=== PATIENT | male | born 1950 | race Caucasian/White ===

== ENCOUNTER → 2016-11-26 | Outpatient (CLI) | payer BC, MEDICARE ==
[~2016-11-26] MED LIST: ATIVAN0.5 MG; CARDIZEM CD240 MG PO; CIALIS PO; DAYPRO600 M1 PO; HYDR12.5C PO; JALYN; PROSCAR5 M1 PO; TRICOR145 MG; UROXATRAL10 MG PO; VIT D2; VITAMIN D2
--- NOTE | ~2016-11-26 | ST ---
[place], [place] EXERCISE STRESS TEST REPORT NAME: HORACE QUINTERO [facility] #: [id number] UNIT #: [id number] ROOM: DOCTOR: REY SOUSA MD BIRTHDATE: [birth year] DOS: 11/26/2016 STRESS TEST REASON FOR TESTING: Evaluation of chest pain. After explaining the procedure and obtaining consent, the patient was subjected to Magdiel protocol. Resting heart rate 64 with a blood pressure of 118/82. EKG showed sinus, normal axis, nonspecific ST. He exercised for a period of 10 minutes and 15 seconds, completed 1 minute and 15 seconds at stage 3. Peak heart rate was 135 with a blood pressure of 164/72. No ST-T wave changes or arrhythmias were seen during the stress test. Within a minute of test termination, he was injected with Cardiolite and stress images will be taken. ASSESSMENT AND PLAN: Exercise stress test without any ST-T wave changes or arrhythmias. Cardiolite images are pending. REY SOUSA MD CM:STRESS:EXERCISE STRESS TEST REPORT [id number] REY SOUSA MD
[2016-11-26 07:24] LABS: BASO % 0.8 % (0.0-1.0); EOS # 0.5 10*3/uL (0.0-0.4); EOS % 9.4 % (1.0-4.0); HEMATOCRIT 45.4 % (42.0-52.0); HEMOGLOBIN 15.9 g/dl (14.0-18.0); LYMPH # 1.5 10*3/uL (1.3-4.4); LYMPH % 28.9 % (27.0-41.0); MEAN CELL VOLUME 94.6 fl (80.0-94.0); MEAN CORPUSCULAR HGB 33.1 pg (27.0-31.0); MEAN PLATELET VOLUME 8.9 fl (9.6-12.3); MONO # 0.6 10*3/uL (0.1-1.0); MONO % 11.3 % (3.0-9.0); NEUT # 2.6 10*3/uL (2.3-7.9); NEUT % 49.4 % (47.0-73.0); PLATELET COUNT AUTOMATED 271 10*3/uL (130-400); WHITE BLOOD COUNT 5.2 10*3/uL (4.8-10.8)
[2016-11-26 08:08] LABS: ALKALINE PHOSPHATASE 44 U/L (45-117); BILIRUBIN, TOTAL 0.6 mg/dl (0.2-1.0); BUN 18 mg/dl (7-24); CARBON DIOXIDE 25 mmol/L (21-32); CHLORIDE 108 mmol/L (98-107); CHOLESTEROL 188 mg/dL (<200); EST GLOM FILT AFRICAN AMERICAN > 60 ml/min; FREE T4 0.87 ng/dl (0.76-1.46); GLUCOSE 99 mg/dL (65-99); HDL CHOLESTEROL 75 mg/dl (40-60); LDL CHOLESTEROL 94 mg/dL (9-159); POTASSIUM 3.7 mmol/L (3.5-5.1); SGOT/AST 26 IU/L (3-35); SGPT/ALT 31 U/L (12-78); SODIUM 143 mmol/L (136-145); TOTAL PROTEIN 6.7 gm/dL (6.4-8.2); TRIGLYCERIDES 97 mg/dl (<150); VLDL CHOLESTEROL 19 mg/dL (6-40)
[2016-11-26 08:39] LABS: FOLIC ACID 16.54 ng/mL (>5.38); VITAMIN D, 25-HYDROXY 31.7 ng/mL (30-100)
== END | disposition home or self-care (01) ==
LOC: CARD 00:55 → LAB 00:55 → CARD 07:30
PROVIDERS: Internal Medicine
DX: Z13.1 Encounter for screening for diabetes mellitus (principal); Z13.21 Encounter for screening for nutritional disorder; Z13.220 Encounter for screening for lipoid disorders; Z00.00 Encounter for general adult medical examination without abnormal findings; R07.2 Precordial pain; F41.1 Generalized anxiety disorder; E72.00 Disorders of amino-acid transport, unspecified; M19.91 Primary osteoarthritis, unspecified site; E78.2 Mixed hyperlipidemia; M17.0 Bilateral primary osteoarthritis of knee; I10 Essential (primary) hypertension; E55.9 Vitamin D deficiency, unspecified; R53.81 Other malaise; R07.9 Chest pain, unspecified

== ENCOUNTER → 2017-01-17 | Outpatient (CLI) | payer BC | END | disposition home or self-care (01) | LOC: CARD 12-25 13:00 | DX: R07.2 Precordial pain (principal) ==

== ENCOUNTER → 2017-07-23 | Outpatient (CLI) | payer MEDICARE | END | disposition home or self-care (01) | LOC: CT 07-22 10:00 | DX: Z01.818 Encounter for other preprocedural examination (principal); M17.12 Unilateral primary osteoarthritis, left knee; N32.9 Bladder disorder, unspecified; Z96.652 Presence of left artificial knee joint ==

== ENCOUNTER → 2017-08-22 | Outpatient (CLI) | payer MEDICARE ==
[~2017-08-22] MED LIST changes: +FISH PO; +LATANOPROST 2.2.5 ML OP; +MULTIPLE VITAM1 EAC1 PO; +VITAMIN C500 M4 PO; +[UNRECOGNIZED DRUG - OTHER] PO
[2017-08-22 09:29] LABS: BASO % 0.8 % (0.0-1.0); EOS # 0.4 10*3/uL (0.0-0.4); EOS % 7.3 % (1.0-4.0); HEMATOCRIT 44.2 % (42.0-52.0); HEMOGLOBIN 15.4 g/dl (14.0-18.0); LYMPH # 1.5 10*3/uL (1.3-4.4); LYMPH % 28.5 % (27.0-41.0); MEAN CELL VOLUME 94.2 fl (80.0-94.0); MEAN CORPUSCULAR HGB 32.8 pg (27.0-31.0); MEAN CORPUSCULAR HGB CONC 34.8 g/dl (33.0-37.0); MONO # 0.6 10*3/uL (0.1-1.0); MONO % 11.6 % (3.0-9.0); NEUT # 2.7 10*3/uL (2.3-7.9); NEUT % 51.4 % (47.0-73.0); PLATELET COUNT AUTOMATED 281 10*3/uL (130-400); RED BLOOD COUNT 4.69 10*6/uL (4.50-5.90); WHITE BLOOD COUNT 5.2 10*3/uL (4.8-10.8)
[2017-08-22 10:12] LABS: ALBUMIN 3.7 gm/dl (3.1-4.5); ALKALINE PHOSPHATASE 43 U/L (45-117); BUN 24 mg/dl (7-24); CHLORIDE 105 mmol/L (98-107); CREATININE 1.32 mg/dL (0.70-1.30); POTASSIUM 3.8 mmol/L (3.5-5.1); SGOT/AST 27 IU/L (3-35); SGPT/ALT 36 U/L (12-78); SODIUM 140 mmol/L (136-145); TOTAL PROTEIN 6.9 gm/dL (6.4-8.2)
== END | disposition home or self-care (01) ==
LOC: LAB 08:39 → CT 09:00
PROVIDERS: Nurse Practitioner Family
DX: Z12.5 Encounter for screening for malignant neoplasm of prostate (principal); D40.0 Neoplasm of uncertain behavior of prostate; I10 Essential (primary) hypertension; N32.89 Other specified disorders of bladder; Z90.49 Acquired absence of other specified parts of digestive tract

== ENCOUNTER → 2017-08-27 | Outpatient (CLI) | payer MEDICARE ==
[2017-08-27 09:33] LABS: BASO % 0.6 % (0.0-1.0); EOS # 0.4 10*3/uL (0.0-0.4); EOS % 7.9 % (1.0-4.0); HEMATOCRIT 46.7 % (42.0-52.0); HEMOGLOBIN 16.4 g/dl (14.0-18.0); LYMPH # 1.6 10*3/uL (1.3-4.4); LYMPH % 30.3 % (27.0-41.0); MEAN CELL VOLUME 95.1 fl (80.0-94.0); MEAN CORPUSCULAR HGB 33.4 pg (27.0-31.0); MEAN CORPUSCULAR HGB CONC 35.1 g/dl (33.0-37.0); MEAN PLATELET VOLUME 8.7 fl (9.6-12.3); MONO # 0.6 10*3/uL (0.1-1.0); MONO % 11.3 % (3.0-9.0); NEUT # 2.7 10*3/uL (2.3-7.9); NEUT % 49.7 % (47.0-73.0); PLATELET COUNT AUTOMATED 294 10*3/uL (130-400); RED BLOOD COUNT 4.91 10*6/uL (4.50-5.90); RED CELL DISTRI WIDTH 12.8 % (0-14.5); WHITE BLOOD COUNT 5.3 10*3/uL (4.8-10.8)
[2017-08-27 09:35] LABS: BILIRUBIN NEGATIVE (NEGATIVE); BLOOD NEGATIVE (NEGATIVE); CLARITY CLOUDY (CLEAR); COLOR YELLOW (YELLOW); GLUCOSE NEGATIVE (NEGATIVE); KETONE NEGATIVE (NEGATIVE); LEUKO ESTERASE NEGATIVE (NEGATIVE); NITRITE NEGATIVE (NEGATIVE); UROBILINOGEN 0.2 E.U./dl (0.2-1.0)
[2017-08-27 10:14] LABS: ALBUMIN 4.2 gm/dl (3.1-4.5); ALKALINE PHOSPHATASE 49 U/L (45-117); BUN 18 mg/dl (7-24); CHLORIDE 105 mmol/L (98-107); CREATININE 1.24 mg/dL (0.70-1.30); POTASSIUM 3.8 mmol/L (3.5-5.1); SGOT/AST 38 IU/L (3-35); SGPT/ALT 36 U/L (12-78); SODIUM 138 mmol/L (136-145); TOTAL PROTEIN 7.3 gm/dL (6.4-8.2)
[2017-08-27 11:08] LABS: BACTERIA 2+
== END | disposition home or self-care (01) ==
LOC: LAB 08:06
PROVIDERS: Orthopaedic Surgery
DX: Z01.818 Encounter for other preprocedural examination (principal); M19.90 Unspecified osteoarthritis, unspecified site

== ENCOUNTER 2017-09-03 01:47 | Inpatient (IN) | payer MEDICARE ==
[~2017-09-03] VITALS: Ht 172.7 cm; Wt 77.1 kg
[2017-09-03] VITALS (9 sets, daily range): BP systolic 103–141; BP diastolic 56–83
--- NOTE | ~2017-09-03 | PR ---
[place], [place] PROGRESS NOTE NAME: HORACE QUINTERO [facility] #: [id number] UNIT #: [id number] ROOM: 510 DOCTOR: REY SOUSA MD BIRTHDATE: [birth year] DOS: SUBJECTIVE: The patient feels fairly good, but during yesterday evening, he developed a low-grade fever. OBJECTIVE: VITAL SIGNS: Graphic trend shows blood pressure 145/87, pulse of 102, respirations 18, temperature 98.9, T-max of 99.1 around 8:00 in the evening. LUNGS: Diminished breath sounds, clear. HEART: Regular. ABDOMEN: Obese, soft, nontender. EXTREMITIES: Trace edema in the left leg. The knee looks fine without any redness or swelling. ASSESSMENT AND PLAN: 1. Primary osteoarthritis, status post left knee replacement. 2. Benign hypertension, controlled. 3. Mild anxiety, already on medications. I reassured the patient about the low-grade fever. We will continue following that. If he spikes a fever again this morning, then we will do blood cultures. Otherwise, when Dr. Bryan clears the patient, can be discharged. REY SOUSA MD CM:PNTRANS [id number] REY SOUSA MD 09/06/17 0233 interface
--- NOTE | ~2017-09-03 | WRIGHTHP ---
[place], [place] PATIENT HISTORY AND PHYSICAL EXAM NAME: [facility]INTERO [id number] UNIT #: [id number] ROOM: 510 DOCTOR: REY SOUSA MD BIRTHDATE: [birth year] DOS: 09/03/2017 HISTORY OF PRESENT ILLNESS: The patient is 66 years old, very well known to us, underwent a left knee replacement yesterday. The patient feels good. Other than pain, he is not having any complaints. Denies any chest pains, palpitations or shortness of breath. PAST MEDICAL HISTORY: Significant for: 1. primary osteoarthritis of left knee, status post replacement. 2. Benign hypertension. 3. Generalized anxiety disorder. 4. Mixed hyperlipidemia. MEDICATIONS: He is on fenofibrate, lorazepam, diltiazem, hydrochlorothiazide, Uroxatral and Proscar 5 mg. SOCIAL HISTORY: Nonsmoker. PHYSICAL EXAMINATION: GENERAL: He is awake and alert and oriented. VITAL SIGNS: Blood pressure is 120/64, pulse of 70, respirations 18. NECK: Supple. No lymph nodes. LUNGS: Clear. HEART: Regular. ABDOMEN: Obese, soft, nontender. EXTREMITIES: Without any edema on the right. Left knee is heavily bandaged. ASSESSMENT AND PLAN: 1. Status post knee replacement for primary osteoarthritis of left knee, postoperative day 1, stable. 2. Benign hypertension. Restart home medications. He did receive slow IV hydration during the night. His pressures are stable. 3. Anticoagulation for deep venous thrombosis prophylaxis ordered. PT, OT have been consulted. [place], [place] PATIENT HISTORY AND PHYSICAL EXAM NAME: INGRIDHORACE Pagan UNIT #: [id number] ROOM: 510 DOCTOR: REY SOUSA MD BIRTHDATE: [birth year] REY SOUSA MD CM:HISPHYS:PATIENT HISTORY AND PHYSICAL EXAMINATION [phone] REY SOUSA MD 09/05/17 0751 interface
--- NOTE | 2017-09-03 12:00 | NUR ---
Time: 1200 A 68 year old MALE admitted to under services of REY BROWN MD. Pt. arrived via bed from OP/ADMIT. Chief complaint: TOTAL KNEE ARTHROPLASTY. LYDIA SIN
--- NOTE | 2017-09-03 13:06 | NUR ---
PHYSICAL THERAPY PAtient evaluated on 5, full evaluation to follow. Continue with PT as per plan of care with fall and acute left TKA precautions. PAtient does not want SNF, wants home. Home with home health RN and PT and family assist. PAtient is moderate complexity via chart review, tests and evaluation: [id number]. Thank you for this referral. Eugenia Bateman,PT
--- NOTE | 2017-09-03 13:15 | NUR ---
THE PATIENT WAS SEEN BY (PT). IN TO SEE PATIENT AFTER (PT) AND PATIENT STATES MINIMAL PAIN, SOB, DIZZINESS, AND N/V. NO OTHER CONCERNS.
--- NOTE | 2017-09-03 13:47 | NUR ---
SPOKE WITH DR. SOUSA ABOUT STARTING PATIENTS HOME MEDS. SEE MED REC TO SEE CONTINUED AND HELD
--- NOTE | 2017-09-03 16:23 | NUR ---
CPM PLACED ON AT 1445. OFF NOW. PER DR. HANNAH PT CAN USE BID TOLERATED. IVF D/C PER ORDER. PT HAS HAD GOOD ORAL INTAKE.
--- NOTE | 2017-09-03 16:29 | NUR ---
ASSESSMENT COMPLETE. PT STATES CPM MACHINE NOT HURTING KNEE BUT BOTHERING HIM AT THE THIGH. DR. HANNAH MADE AWARE. ANGE DRESSING TO LEFT LEG, INCISION NOT VISABLE. PPP BILATERALLY, NO EDEMA NOTED. PT DENY NUMBNESS/TINGLING IN SURGICAL LEG. LESLIE INTACT. PT STATES NO NEEDS AT THIS TIME.
--- NOTE | 2017-09-03 20:11 | NUR ---
PATIENT GIVEN PERCOCET FOR POST OP KNEE PAIN 4/10.
--- NOTE | 2017-09-03 20:59 | NUR ---
PATIENT STATED THAT PAIN WAS WORSE AND THAT PAIN PILL DID NOT HELP HIM. PATIENT STATED AT THIS TIME PAIN WAS 10/10. PATIENT WAS THEN GIVEN DILAUDID 2 MG ORDERED. WILL CONTINUE TO MONITOR.
--- NOTE | 2017-09-03 22:52 | NUR ---
PATIENT HAS SINCE STATED THAT PAIN MEDICATION WAS EFFECTIVE AND HE IS NOT HAVING AT THIS TIME. WILL CONTINUE TO MONITOR.
--- NOTE | 2017-09-03 23:24 | NUR ---
MEDICATED WITH COLACE FOR COMPLAINTS OF CONSTIPATION. WILL MONITOR FOR EFFECTIVENESS. CALL LIGHT IN REACH.
[2017-09-04] VITALS: BP 111/80
--- NOTE | 2017-09-04 00:02 | NUR ---
MEDICATED WITH DILAUDID 2MG FOR COMPLAINTS OF LEFT KNEE PAIN. WILL MONITOR FOR EFFECTIVENESS. CALL LIGHT IN REACH.
--- NOTE | 2017-09-04 00:38 | NUR ---
DILAUDID EFFECTIVE AT THIS TIME. RESTING IN BED WITH EYES CLOSED. NO SIGNS OR SYMPTOMS OF DISTRESS NOTED. CALL LIGHT IN REACH.
--- NOTE | 2017-09-04 06:00 | NUR ---
LESLIE CATH REMOVED. PATIENT TOLERATED PROCEDURE WELL. NO SIGNS OR SYMPTOMS OF DISTRESS NOTED.
--- NOTE | 2017-09-04 06:06 | NUR ---
PATIENT MEDICATED WITH PERCOCET FOR COMPLAINTS OF LEFT KNEE PAIN. WILL MONITOR FOR EFFECTIVENESS.
[2017-09-04 06:58] LABS: HEMATOCRIT 36.2 % (42.0-52.0); HEMOGLOBIN 12.6 g/dl (14.0-18.0); MEAN CELL VOLUME 97.1 fl (80.0-94.0); MEAN CORPUSCULAR HGB 33.8 pg (27.0-31.0); MEAN CORPUSCULAR HGB CONC 34.8 g/dl (33.0-37.0); MEAN PLATELET VOLUME 9.2 fl (9.6-12.3); PLATELET COUNT AUTOMATED 241 10*3/uL (130-400); RED BLOOD COUNT 3.73 10*6/uL (4.50-5.90); WHITE BLOOD COUNT 12.6 10*3/uL (4.8-10.8)
[2017-09-04 07:19] LABS: PLATELET SUFFICIENCY NORMAL (NORMAL); TOTAL CELLS COUNTED 100 #CELLS
--- NOTE | 2017-09-04 07:48 | NUR ---
PT MEDICATED WITH PRN DILAUDID AT THIS TIME FOR C/O LEFT KNEE PAIN. PT RATES PAIN /10. WILL CONTINUE TO MONITOR.
[2017-09-04 08:00] VITALS: BP 120/64
--- NOTE | 2017-09-04 08:00 | NUR ---
Cloth Weigher in to talk to patient. Patient states lives at HOME with HIS . There are 2 steps in the home. Physician: DR SOUSA Pharmacy: [facility] health services: NONE AGREES TO [facility] NURSE AND PT WILL CHECK WITH FOR PREFERENCE OF COMPANY Patient's level of ADLs: MINIMAL ASSIST Patient has working utilities: YES DME: NONE Follow-up physician's appointment after d/c: PREFERS TO MAKE OWN APPT Does patient want to access PORTAL?: Discharge plan HOME. [facility] DOES NOT WANT SNF STAY
--- NOTE | 2017-09-04 09:00 | NUR ---
PRN DILAUDID EFFECTIVE PER PT.
--- NOTE | 2017-09-04 09:44 | NUR ---
PHYSICAL THERAPY Anderson was seen this AM for his physical therapy session, Pt supine in bed and wanting his pain meds and ask if i could come back later and wanting to have his breakfast first. LOREE HALLMAN CORSET MAKER.
--- NOTE | 2017-09-04 11:09 | NUR ---
CHOOSES [facility] NURSE AND P.T. WILL ARRANGE CLOSER TO DC. DOES NOT HAVE PREFERANCE FOR DME COMPANY. WILL ORDER WHEELED WALKER AND CPM WHEN I GET WRITTEN SCRIPTS.
--- NOTE | 2017-09-04 11:31 | NUR ---
PT REQUESTS PRN DILAUDID FOR C/O LEFT KNEE PAIN AFTER HE WAS UP WALKIN WITH THERAPY. PT RATES PAIN 07/07. WILL REACCESS.
--- NOTE | 2017-09-04 11:33 | NUR ---
PHYSICAL THERAPY Back this AM to see Mr Rodas. Pt a left TKA, with acute precautions. Transfer supine/sit, sitting balance independent. Working left knee flexion with sitting on the side of Pt's bed, act LAQ'. Sit stand, standing balance with standard walker CG X 1. Followed by gait total 110' X 1, with teaching proper step through, toe off heel strike, knee extension, stop/start gait, stand balance with CG X 1, no LOB. Will try wheeled walker next gait. Pt up in his bedside chair working left knee flexion/extension to pain tolerance and tolerate well. Pt with call light phone. LOREE HALLMAN MACHINERY CLEANER.
--- NOTE | 2017-09-04 12:15 | NUR ---
PRN DILAUDID EFFECTIVE PER PT.
--- NOTE | 2017-09-04 13:08 | NUR ---
PHYSICAL THERAPY Anderson seen this PM 1:1 for his therapy session and is improving with his therapy gait and Ex. Transfer supine/sit, sitting balance independent. Working left knee flexion in sitting on the side of his bed and extension with improvement in rom and pain. Sit/stand and up on wheeled walker CG X 1. gait with W/W for the first time. Gait total 120' X 1, no standing rest, and improving with toe off heel strike, gait stride. Pt back sitting at bedside left knee flexion/extension act, passive rom. Followed by back supine in bed for his lunch and is pleased with his progress. LOREE HALLMAN ONLINE ADVERTISING MANAGER.
--- NOTE | 2017-09-04 13:20 | NUR ---
Occupational Therapy evaluation completed this date on 5 with full eval to follow. Precautions include fall risk, left total knee precautions, moderate complexity level 95501. Patient educated in left TKA precautions, bed controls to be aware of full left knee extension (as patient's knee was flexed upon arrival),TKA precautions reviewed, walker safety w/ xfers, education in initial intro to sock aide, leg lefter and the need for family education regarding CPM machine prior to d/c. Recommend OT per POC and home health OT,PT,SN upon d/c Thank you for this referral. Adali Ellis OTR/L
--- NOTE | 2017-09-04 13:29 | NUR ---
PT MEDICATED WITH PRN PERCOCET FOR C/O BREAK THROUGH PAIN OF LEFT KNEE. WILL CONTINUE TO MONITOR.
--- NOTE | 2017-09-04 14:37 | NUR ---
PT REQUEST PRN DILAUDID FOR C/O LEFT KNEE PAIN. -PT RATES PAIN /. WILL REACCESS.
--- NOTE | 2017-09-04 15:06 | NUR ---
DR. HANNAH TO THE FLOOR FOR DRESSING CHANGE.
--- NOTE | 2017-09-04 15:52 | NUR ---
PUT PT ON CPM MACHINE AT THIS TIME.
[2017-09-04 16:00] VITALS: BP 140/76
--- NOTE | 2017-09-04 16:01 | NUR ---
PT TOLERATING CPM MACHINE WELL.
--- NOTE | 2017-09-04 18:26 | NUR ---
PT MEDICATED WITH PRN DILAUDID AT THIS TIME FOR C/O LEFT KNEE PAIN. PATIENT RATES PAIN 08/06. WILL REACCESS.
--- NOTE | 2017-09-04 20:04 | NUR ---
PATIENT MEDICATED WITH PERCOCET PER PRN ORDER FOR C/O L. KNEE PAINAND TEMP ELEVATION. RATED PAIN A 3/10 WITH 10 BEING THE WORST. ALSO TEMP ELEVATION OF 99.4. REINFORCED USE OF CALL LIGHT.
--- NOTE | 2017-09-04 21:29 | NUR ---
PATIENT MEDICATED WITH DILAUDID PER PRN ORDER FOR C/O PAIN. RATED PAIN A 5/10 WITH 10 BEING THE WORST. SEE EMAR. REINFORCED USE OF CALL LIGHT.
[2017-09-05] VITALS: BP 145/87
--- NOTE | 2017-09-05 00:45 | NUR ---
PATIENT MEDICATED WITH PERCOCET PER PRN ORDER FOR C/O PAIN. SEE EMAR . REINFORCED USE OF CALL LIGHT.
--- NOTE | 2017-09-05 01:30 | NUR ---
PERCOCET GIVEN EARLIER ONLY SLIGHTLY EFFECTIVE. PATIENT MEDICATED SLOWLY WITH DILAUDID PER PRN ORDER FOR C/O PAIN. RATED PAIN A 6/10 WITH 10 BEING THE WORST. SEE EMAR.
--- NOTE | 2017-09-05 03:00 | NUR ---
PATIETN RESTING QUIETLY. NO FURTHER C/O VOICED.
--- NOTE | 2017-09-05 05:00 | NUR ---
Patient medicated slowly with dilaudid as per prn order for c/o l. leg pain. Rated pain a 6/10 with 10 being the worst. See emar. Reinforced use if call light
--- NOTE | 2017-09-05 06:05 | NUR ---
PATIENT MEDICATED WITH PERCOCET PER PRN ORDER AND PATIENT REQUEST FOR C/O L. LEG PAIN. RATED PAIN 5/10 WITH 10 BEING THE WORST. SEE EMAR. REINFORCED USE OF CALL LIGHT.
[2017-09-05 06:34] LABS: BASO % 0.2 % (0.0-1.0); EOS # 0.1 10*3/uL (0.0-0.4); EOS % 1.3 % (1.0-4.0); HEMATOCRIT 35.1 % (42.0-52.0); HEMOGLOBIN 12.1 g/dl (14.0-18.0); LYMPH # 1.4 10*3/uL (1.3-4.4); MEAN CELL VOLUME 95.9 fl (80.0-94.0); MEAN CORPUSCULAR HGB 33.1 pg (27.0-31.0); MEAN CORPUSCULAR HGB CONC 34.5 g/dl (33.0-37.0); MEAN PLATELET VOLUME 9.2 fl (9.6-12.3); MONO # 1.5 10*3/uL (0.1-1.0); MONO % 17.7 % (3.0-9.0); NEUT # 5.2 10*3/uL (2.3-7.9); NEUT % 63.4 % (47.0-73.0); PLATELET COUNT AUTOMATED 208 10*3/uL (130-400); RED BLOOD COUNT 3.66 10*6/uL (4.50-5.90); RED CELL DISTRI WIDTH 12.9 % (0-14.5); WHITE BLOOD COUNT 8.2 10*3/uL (4.8-10.8)
[2017-09-05 06:40] LABS: BUN 17 mg/dl (7-24); CHLORIDE 101 mmol/L (98-107); CREATININE 1.14 mg/dL (0.70-1.30); POTASSIUM 3.8 mmol/L (3.5-5.1); SODIUM 138 mmol/L (136-145)
[2017-09-05 08:00] VITALS: BP 137/78
--- NOTE | 2017-09-05 08:00 | NUR ---
PT UP TO SHOWER. PT C/O LEFT KNEE PAIN THAT RATES A 4/10 ON PAIN SCALE. PT WANTS TO WAIT UNTIL PERCOCET IS DUE FOR PAIN MED.
--- NOTE | 2017-09-05 09:53 | NUR ---
MEDICATED PT PER PRN ORDER WITH IV DILAUDID FOR PT'S C/O LEFT KNEE PAIN THAT RATES AN 8/10 ON PAIN SCALE. PO DULCOLAX GIVEN TO PT PER PRN ORDER FOR C/O CONSTIPATION AFTER ORDER RECEIVED EARLIER FROM DR SOUSA.
--- NOTE | 2017-09-05 09:54 | NUR ---
PHYSICAL THERAPY Anderson seen this AM 1:1 for his therapy treatment. Start with act quad sets to pain tolerance improving slow with his quad sets. Supine/sit CGA X 1, helping left LE, sitting balance side of bed working act left knee flexion. Then sit/stand up on wheeled walker CG X 1, no LOB. Followed by gait 92' X 2, with W/W and much verbal cueing for heel strike, toe off with step through with improvement, no LOB with his gait. Pt back at bedside for another left knee flexion, then supine quad sets. LOREE HALLMAN SPRAY CREW.
--- NOTE | 2017-09-05 10:53 | NUR ---
PT STATES RELIEF OF PAIN WITH EARLIER DILAUDID. NO RESULTS YET FROM DULCOLAX.
--- NOTE | 2017-09-05 11:47 | NUR ---
MEDICATED PT PER PRN ORDER WITH PERCOCET FOR C/O LEFT KNEE PAIN THAT RATES A 4 ON 1-10 PAIN SCALE. CPM APPLIED PER ORDER.
[2017-09-05 12:00] VITALS: BP 144/76
--- NOTE | 2017-09-05 12:50 | NUR ---
PT STATES RELIEF OF PAIN WITH EARLIER PERCOCET.
--- NOTE | 2017-09-05 12:57 | NUR ---
PHYSICAL THERAPY Mr Rodas seen this PM 1:1 for his physical therapy session, present to catina Barron, Pt going home with D/C from the hospital. Transfer supine/sit, sitting balance supervision X 1. At bedside working left knee flexion to Pt's pain tolerance. Then sit/stand and up on wheeled walker independent. Gait total 225' X 1, W/W and supervision X 1, no LOB. Verbal cueing for heel strike and toe off, stop/start gait. Pt back at bedside for left knee flexion and supine knee extension. Pt is improveing with his rom and pain, and was just taken off the CPM before his PM treatment. LOREE HALLMAN QUALITY MANAGEMENT NURSE.
[2017-09-05] MEDS ORDERED: ENOXAPARIN30 MG/0.2 SC (13:45)
[2017-09-05] MEDS ORDERED: Percocet 325 MG1 TAB PO (13:46)
[2017-09-05] MEDS ORDERED: OXYCODONE HCL5 M1 PO (13:52)
--- NOTE | 2017-09-05 14:04 | NUR ---
SCRIPTS AND PAPERWORK FAXED TO [facility]. SPOKE TO ROSA MARIA THERE. AWARE OF DC TOMORROW AND NEEDING WHEELED WALKER IN HIS ROOM HERE AND CPM MACHINE TAKEN TO HIS HOME.
--- NOTE | 2017-09-05 15:51 | NUR ---
PT REQUESTING PRN PAIN MEDICATION, REPORTS PAIN IN THE LEFT KNEE RATING 7/10, ADMINSITERED PERCOCET PO PRN PER ORDERS WILL MONITOR EFFECTS
--- NOTE | 2017-09-05 16:51 | NUR ---
PRN PERCOCET EFFECTIVE AT THIS TIME, PT REPORTS DECREASED PAIN LEVEL IN THE LEFT KNEE
--- NOTE | 2017-09-05 18:59 | NUR ---
PT REQUESTED PRN PAIN MEDICATION, ADMINISTERED OXY IR PO PRN PER ORDERS, WILL MONITOR EFFECTS
[2017-09-05 20:00] VITALS: BP 129/72
[2017-09-06] VITALS: BP 153/84
[2017-09-06 06:20] LABS: BASO % 0.4 % (0.0-1.0); EOS # 0.2 10*3/uL (0.0-0.4); EOS % 1.8 % (1.0-4.0); HEMATOCRIT 32.8 % (42.0-52.0); HEMOGLOBIN 11.4 g/dl (14.0-18.0); LYMPH # 1.5 10*3/uL (1.3-4.4); LYMPH % 16.9 % (27.0-41.0); MEAN CELL VOLUME 94.5 fl (80.0-94.0); MEAN CORPUSCULAR HGB 32.9 pg (27.0-31.0); MEAN CORPUSCULAR HGB CONC 34.8 g/dl (33.0-37.0); MEAN PLATELET VOLUME 9.3 fl (9.6-12.3); MONO # 1.2 10*3/uL (0.1-1.0); MONO % 14.1 % (3.0-9.0); NEUT # 5.7 10*3/uL (2.3-7.9); NEUT % 66.3 % (47.0-73.0); PLATELET COUNT AUTOMATED 222 10*3/uL (130-400); RED BLOOD COUNT 3.47 10*6/uL (4.50-5.90); RED CELL DISTRI WIDTH 12.6 % (0-14.5); WHITE BLOOD COUNT 8.6 10*3/uL (4.8-10.8)
--- NOTE | 2017-09-06 07:36 | NUR ---
MEDICATED FOR PAIN OF 5 ON THE PAIN SCALE.
[2017-09-06 08:00] VITALS: BP 136/78
--- NOTE | 2017-09-06 08:30 | NUR ---
STATES THAT PAIN PILL DID TAKE SOME OF THE PAIN AWAY.
--- NOTE | 2017-09-06 09:16 | NUR ---
MEDICATED FOR PAIN OF 5 ON THE PAIN SCALE IN LEFT LEG.
--- NOTE | 2017-09-06 09:30 | NUR ---
SEWER DIGGER VS. WHEELED WALKER HAS BEEN DELIVERED TO HIS ROOM. STATES CPM TO BE DELIVERED TO HIS HOME.
--- NOTE | 2017-09-06 10:11 | NUR ---
PHYSICAL THERAPY Anderson seen this AM 1:1 for his therapy session. Pt having C/O left LE, knee pain just a little more this morning, Pt on perocet fo rhis pain. Wanting Pt to transfer and gait this morning just as if he was at home. Transfer supine/sit, with therapy helping with left LE, sitting balance supervision X 1. Sit/stand and up on wheeled walker CG X 1. Gait total 220' X 1, CG X 1. no LOB and little cueing for gait safety. Pt back sitting at bedside working act left knee flexion, act assist, and act LAQ's very weak, or just due to his pain, weak in extension. Pt's left LE was warm to the touch and i told his to let his Dr know this when she comes in today, will check back. LOREE HALLMAN ADMINISTRATIVE COORDINATOR.
--- NOTE | 2017-09-06 10:30 | NUR ---
EARLIER PAIN MEDICATION WAS EFFECTIVE.
--- NOTE | 2017-09-06 11:52 | NUR ---
PATIENT REPORTS INCREASE SWELLING L LE WITH NURSING AWARE AND REPORTS A WAITING AN X -RAY. JAMES ALVAREZ/Jill
--- NOTE | 2017-09-06 13:08 | NUR ---
PHYSICAL THERAPY Anderson was seen this PM for his physical therapy session. Pt taking his pain meds for pain in his left LE knee, and having swelling. Mr Clark present and they both wanted to just hold his PM therapy treatment due to his pain and swelling. They both said that they wanted to see what the Dr is finding out about the pain and swelling first, no PM therapy treatment. LOREE HALLMAN COMPLAINT SPECIALIST.
--- NOTE | 2017-09-06 13:43 | NUR ---
MEDICATED FOR C/O PAIN OF FIVE ON THE PAIN SCALE.
--- NOTE | 2017-09-06 14:30 | NUR ---
STATES THAT PAIN PILL HAS HELPED SOME.
--- NOTE | 2017-09-06 14:35 | NUR ---
Faxed order and clincals to [facility] to resume services when patient is discharged.
[2017-09-06 16:00] VITALS: BP 145/75
--- NOTE | 2017-09-06 16:02 | NUR ---
MEDICATED FOR PAIN WITH PO MED FOR POST-OP LEFT KNEE PAIN OF 4 ON THE PAIN SCALE.
--- NOTE | 2017-09-06 16:03 | NUR ---
MEDICATED FOR PAIN OF 4 ON THE PAIN SCALE.
--- NOTE | 2017-09-06 17:24 | NUR ---
STATES EARLIER PAIN MED WAS EFFECTIVE.
--- NOTE | 2017-09-06 17:55 | NUR ---
DISCHARGE HOME AFTER INSTRUCTIONS EXPLAINED TO PATIENT AND .
--- NOTE | 2017-09-09 07:17 | NUR ---
PHYSICAL THERAPY CO-SIGN I approve of the Phyical Therapy notes written above. SISSY ROSA PT
--- NOTE | 2017-09-09 08:11 | NUR ---
OCCUPATIONAL THERAPY CO-SIGN I approve of the Occupational Therapy notes written above. JULIET PENNY OTR/Jill
== END 2017-09-06 17:55 | disposition home health service (06) | DRG 470 ==
LOC: SDC 01:47 → 5E 07:50 → SDC 08:00 → 5E 09-06 17:55
PROVIDERS: Orthopaedic Surgery; ADMIT Internal Medicine
PROC: 0SRD0J9 Replacement of Left Knee Joint with Synthetic Substitute, Cemented, Open Approach (ICD-10-PCS; principal; 2017-09-03)
DX: M17.12 Unilateral primary osteoarthritis, left knee (principal); E66.9 Obesity, unspecified; I10 Essential (primary) hypertension; E78.2 Mixed hyperlipidemia; F41.1 Generalized anxiety disorder; Z68.25 Body mass index [BMI] 25.0-25.9, adult; Z79.899 Other long term (current) drug therapy

== ENCOUNTER → 2017-09-17 | Outpatient (CLI) | payer MEDICARE ==
[~2017-09-17] MED LIST changes: +ENOXAPARIN30 MG/0.2 SC; +OXYCODONE HCL5 M1 PO; +Percocet 325 MG1 TAB PO
[2017-09-17 10:57] LABS: BILIRUBIN NEGATIVE (NEGATIVE); BLOOD NEGATIVE (NEGATIVE); CLARITY CLOUDY (CLEAR); COLOR YELLOW (YELLOW); GLUCOSE NEGATIVE (NEGATIVE); KETONE NEGATIVE (NEGATIVE); LEUKO ESTERASE TRACE (NEGATIVE); NITRITE NEGATIVE (NEGATIVE); PH 6.5 (5.0-9.0); SPECIFIC GRAVITY 1.015 (1.005-1.030); UROBILINOGEN 0.2 E.U./dl (0.2-1.0)
[2017-09-17 11:28] LABS: RBC 0-2 rbc/hpf (0-2)
== END | disposition home or self-care (01) ==
LOC: ORTHO 01:30 → LAB 01:30 → ORTHO 18:03
PROVIDERS: Orthopaedic Surgery
DX: R30.0 Dysuria (principal)

== ENCOUNTER → 2017-10-16 | Outpatient (CLI) | payer MEDICARE | END | disposition home or self-care (01) | LOC: ORTHO 01:18 | DX: M17.12 Unilateral primary osteoarthritis, left knee (principal) ==

== ENCOUNTER → 2017-11-13 | Outpatient (CLI) | payer MEDICARE | END | disposition home or self-care (01) | LOC: ORTHO 01:43 | DX: M17.12 Unilateral primary osteoarthritis, left knee (principal); M25.462 Effusion, left knee; Z96.652 Presence of left artificial knee joint ==

== ENCOUNTER → 2018-02-05 | Outpatient (CLI) | payer MEDICARE | END | disposition home or self-care (01) | LOC: ORTHO 09:00 | DX: Z48.89 Encounter for other specified surgical aftercare (principal); M17.9 Osteoarthritis of knee, unspecified; Z96.652 Presence of left artificial knee joint ==

== ENCOUNTER → 2018-02-20 | Outpatient (CLI) | payer MEDICARE ==
[2018-02-20 09:19] LABS: BASO # 0.1 10*3/uL (0.0-0.1); BASO % 1.2 % (0.0-1.0); EOS # 0.3 10*3/uL (0.0-0.4); EOS % 6.6 % (1.0-4.0); HEMOGLOBIN 16.2 g/dl (14.0-18.0); LYMPH # 1.4 10*3/uL (1.3-4.4); LYMPH % 26.9 % (27.0-41.0); MEAN CELL VOLUME 94.6 fl (80.0-94.0); MEAN CORPUSCULAR HGB 32.6 pg (27.0-31.0); MEAN CORPUSCULAR HGB CONC 34.5 g/dl (33.0-37.0); MEAN PLATELET VOLUME 8.6 fl (9.6-12.3); MONO # 0.5 10*3/uL (0.1-1.0); MONO % 10.3 % (3.0-9.0); NEUT # 2.8 10*3/uL (2.3-7.9); NEUT % 54.8 % (47.0-73.0); PLATELET COUNT AUTOMATED 283 10*3/uL (130-400); RED BLOOD COUNT 4.97 10*6/uL (4.50-5.90); RED CELL DISTRI WIDTH 12.8 % (0-14.5); WHITE BLOOD COUNT 5.2 10*3/uL (4.8-10.8)
[2018-02-20 09:48] LABS: ALBUMIN 3.9 gm/dl (3.1-4.5); BUN 20 mg/dl (7-24); CHLORIDE 107 mmol/L (98-107); CHOLESTEROL 191 mg/dL (<200); CREATININE 1.42 mg/dL (0.70-1.30); POTASSIUM 3.7 mmol/L (3.5-5.1); SGOT/AST 24 IU/L (3-35); SGPT/ALT 28 U/L (12-78); SODIUM 141 mmol/L (136-145); TRIGLYCERIDES 84 mg/dl (<150); VLDL CHOLESTEROL 17 mg/dL (6-40)
[2018-02-20 09:58] LABS: ALKALINE PHOSPHATASE 50 U/L (45-117); HDL CHOLESTEROL 69 mg/dl (40-60); LDL CHOLESTEROL 105 mg/dL (9-159)
== END | disposition home or self-care (01) ==
LOC: LAB 08:54
PROVIDERS: Internal Medicine
DX: Z12.5 Encounter for screening for malignant neoplasm of prostate (principal); I10 Essential (primary) hypertension; N40.0 Benign prostatic hyperplasia without lower urinary tract symptoms; E78.00 Pure hypercholesterolemia, unspecified

== ENCOUNTER → 2018-05-14 | Outpatient (CLI) | payer MEDICARE | END | disposition home or self-care (01) | LOC: LAB 12:50 | DX: N39.0 Urinary tract infection, site not specified (principal) ==

== ENCOUNTER → 2018-09-08 | Outpatient (CLI) | payer MEDICARE ==
[~2018-09-08] MED LIST changes: +PROTONIX40 MG PO
== END | disposition home or self-care (01) ==
LOC: RAD 11:46
DX: M54.16 Radiculopathy, lumbar region (principal); R20.0 Anesthesia of skin; M54.5 Low back pain

== ENCOUNTER → 2018-09-12 | Outpatient (CLI) | payer MEDICARE | END | disposition home or self-care (01) | LOC: MRI 02:01 | DX: M47.896 Other spondylosis, lumbar region (principal); M48.061 Spinal stenosis, lumbar region without neurogenic claudication ==

== ENCOUNTER → 2019-03-10 | Outpatient (CLI) | payer MEDICARE | END | disposition home or self-care (01) | LOC: LAB 09:29 | DX: Z12.5 Encounter for screening for malignant neoplasm of prostate (principal); D40.0 Neoplasm of uncertain behavior of prostate ==

== ENCOUNTER → 2019-04-20 | Outpatient (CLI) | payer MEDICARE ==
[2019-04-20 08:34] LABS: BASO % 0.5 % (0.0-1.0); EOS # 0.2 10*3/uL (0.0-0.4); EOS % 4.2 % (1.0-4.0); HEMATOCRIT 47.2 % (42.0-52.0); HEMOGLOBIN 16.1 g/dl (14.0-18.0); LYMPH # 1.4 10*3/uL (1.3-4.4); LYMPH % 25.1 % (27.0-41.0); MEAN CELL VOLUME 98.7 fl (80.0-94.0); MEAN CORPUSCULAR HGB 33.7 pg (27.0-31.0); MEAN CORPUSCULAR HGB CONC 34.1 g/dl (33.0-37.0); MEAN PLATELET VOLUME 9.1 fl (9.6-12.3); MONO # 0.6 10*3/uL (0.1-1.0); MONO % 11.4 % (3.0-9.0); NEUT # 3.2 10*3/uL (2.3-7.9); NEUT % 58.4 % (47.0-73.0); PLATELET COUNT AUTOMATED 314 10*3/uL (130-400); RED BLOOD COUNT 4.78 10*6/uL (4.50-5.90); WHITE BLOOD COUNT 5.5 10*3/uL (4.8-10.8)
[2019-04-20 08:49] LABS: ALBUMIN 3.9 gm/dl (3.1-4.5); BUN 17 mg/dl (7-24); CHLORIDE 109 mmol/L (98-107); CHOLESTEROL 183 mg/dL (<200); CREATININE 1.33 mg/dL (0.70-1.30); POTASSIUM 3.8 mmol/L (3.5-5.1); SGOT/AST 25 IU/L (3-35); SGPT/ALT 32 U/L (12-78); SODIUM 144 mmol/L (136-145); TOTAL PROTEIN 6.9 gm/dL (6.4-8.2); TRIGLYCERIDES 73 mg/dl (<150); VLDL CHOLESTEROL 15 mg/dL (6-40)
[2019-04-20 08:55] LABS: ALKALINE PHOSPHATASE 45 U/L (45-117); FREE T4 0.83 ng/dl (0.76-1.46); HDL CHOLESTEROL 66 mg/dl (40-60); LDL CHOLESTEROL 102 mg/dL (9-159)
[2019-04-20 09:56] LABS: VITAMIN D, 25-HYDROXY 38.9 ng/mL (30-100)
== END | disposition home or self-care (01) ==
LOC: LAB 07:46
PROVIDERS: Internal Medicine
DX: E78.2 Mixed hyperlipidemia (principal); E55.9 Vitamin D deficiency, unspecified; E03.9 Hypothyroidism, unspecified; D51.9 Vitamin B12 deficiency anemia, unspecified; D52.9 Folate deficiency anemia, unspecified

== ENCOUNTER → 2019-05-19 | Outpatient (CLI) | payer MEDICARE | END | disposition home or self-care (01) | LOC: US 05-09 11:00 | DX: R79.89 Other specified abnormal findings of blood chemistry (principal); N40.0 Benign prostatic hyperplasia without lower urinary tract symptoms ==

== ENCOUNTER → 2019-07-15 | Outpatient (CLI) | payer MEDICARE | END | disposition home or self-care (01) | LOC: ORTHO 00:49 | DX: M17.11 Unilateral primary osteoarthritis, right knee (principal) ==

== ENCOUNTER → 2019-07-17 | Outpatient (CLI) | payer MEDICARE | END | disposition home or self-care (01) | LOC: RAD 13:20 | DX: M16.0 Bilateral primary osteoarthritis of hip (principal) ==

== ENCOUNTER → 2019-07-23 | Outpatient (CLI) | payer MEDICARE ==
[~2019-07-23] MED LIST changes: -ATIVAN0.5 MG; +ATIVAN0.5 MG PO; -CARDIZEM CD240 MG PO; +CARDIZEM CD300 MG PO; +CIALIS10 MG PO; +GAVISCON ES TA1 EACH PO; +OMEPRAZOLE40 MG PO; +VITAMIN B121000 MC1 PO; +VITAMIN D31000 UNI1 PO; +VITAMIN D50000 UNIT PO
== END | disposition home or self-care (01) ==
LOC: CT 10:00
DX: M17.11 Unilateral primary osteoarthritis, right knee (principal); M25.461 Effusion, right knee

== ENCOUNTER → 2019-08-28 | Outpatient (CLI) | payer MEDICARE ==
--- NOTE | ~2019-08-28 | EKG ---
[place], [place] ELECTROCARDIOGRAM REPORT NAME: HORACE QUINTERO UNIT #: [id number] ROOM: DOCTOR: EPIPHANY DRAFT REPORT BIRTHDATE: [birth year] [facility] Test Date: 2019-08-28 Test Time: 14:11:03 Pat Name: HORACE QUINTERO Department: Room: Gender: Road Maker: : 1950 Requested By: MINAL HANNAH Order Number: [id number] Reading MD: Miller Ortiz MD Measurements Intervals [place] Rate: 65 P: 43 GA: 165 QRS: 8 QRSD: 98 T: 48 QT: 390 QTc: 406 Interpretive Statements Sinus rhythm Normal ECG Electronically Signed On 08-28-2019 13:43:51 PDT by Miller Ortiz MD CM:EKGRPT:ELECTROCARDIOGRAM REPORT 1411 1343 MINAL NEWMAN DRAFT REPORT MINAL HANNAH DO
[2019-08-28 14:34] LABS: BASO # 0.1 10*3/uL (0.0-0.1); BASO % 1.1 % (0.0-1.0); EOS # 0.4 10*3/uL (0.0-0.4); EOS % 6.7 % (1.0-4.0); HEMATOCRIT 45.4 % (42.0-52.0); HEMOGLOBIN 15.6 g/dl (14.0-18.0); LYMPH # 1.4 10*3/uL (1.3-4.4); LYMPH % 27.4 % (27.0-41.0); MEAN CELL VOLUME 97.4 fl (80.0-94.0); MEAN CORPUSCULAR HGB 33.5 pg (27.0-31.0); MEAN CORPUSCULAR HGB CONC 34.4 g/dl (33.0-37.0); MEAN PLATELET VOLUME 8.9 fl (9.6-12.3); MONO # 0.6 10*3/uL (0.1-1.0); MONO % 12.2 % (3.0-9.0); NEUT # 2.8 10*3/uL (2.3-7.9); NEUT % 52.4 % (47.0-73.0); PLATELET COUNT AUTOMATED 272 10*3/uL (130-400); RED BLOOD COUNT 4.66 10*6/uL (4.50-5.90); RED CELL DISTRI WIDTH 13.2 % (0-14.5); WHITE BLOOD COUNT 5.3 10*3/uL (4.8-10.8)
[2019-08-28 14:43] LABS: BILIRUBIN NEGATIVE (NEGATIVE); BLOOD NEGATIVE (NEGATIVE); CLARITY CLEAR (CLEAR); COLOR YELLOW (YELLOW); GLUCOSE NEGATIVE (NEGATIVE); KETONE NEGATIVE (NEGATIVE); LEUKO ESTERASE TRACE (NEGATIVE); NITRITE NEGATIVE (NEGATIVE); PH 6.5 (5.0-9.0); SPECIFIC GRAVITY 1.015 (1.005-1.030); UROBILINOGEN 0.2 E.U./dl (0.2-1.0)
[2019-08-28 14:52] LABS: BACTERIA 1+
[2019-08-28 14:53] LABS: ALKALINE PHOSPHATASE 43 U/L (45-117); BUN 16 mg/dl (7-24); CHLORIDE 109 mmol/L (98-107); CREATININE 1.28 mg/dL (0.70-1.30); POTASSIUM 3.9 mmol/L (3.5-5.1); SGOT/AST 26 IU/L (3-35); SGPT/ALT 39 U/L (12-78); SODIUM 141 mmol/L (136-145); TOTAL PROTEIN 6.9 gm/dL (6.4-8.2)
== END | disposition home or self-care (01) ==
LOC: LAB 12:10
PROVIDERS: Orthopaedic Surgery
DX: I10 Essential (primary) hypertension (principal); E55.9 Vitamin D deficiency, unspecified; M17.11 Unilateral primary osteoarthritis, right knee; Z79.899 Other long term (current) drug therapy

== ENCOUNTER 2019-09-08 00:33 | Inpatient (IN) | payer MEDICARE ==
[~2019-09-08] VITALS: Ht 173 cm; Wt 79.0 kg
[2019-09-08] VITALS (10 sets, daily range): BP systolic 128–152; BP diastolic 51–81
--- NOTE | ~2019-09-08 | PR ---
[place], [place] PROGRESS NOTE NAME[facility] [id number] UNIT #: [id number] ROOM: 427 DOCTOR: REY SOUSA MD BIRTHDATE: [birth year] DOS: 09/10/2019 SUBJECTIVE: The patient is sitting up in bed, about ate his breakfast. Has minimal discomfort, but overall feeling good. OBJECTIVE: VITAL SIGNS: Blood pressure is 149/73, pulse of 95, respirations 18, temperature 99.1. LUNGS: Clear. HEART: Regular. ABDOMEN: Obese, soft. EXTREMITIES: Without any edema on the left. Right is heavily bandaged. LABORATORY DATA: White cell count is 8.0, hemoglobin 12.6, hematocrit 37.1, platelets 248. ASSESSMENT AND PLAN: The patient has a primary osteoarthritis, status post right knee replacement on day #2. Hopefully, can have his [place] out today and probably discharge home in the morning. PT/OT consultation will be obtained upon discharge. REY SOUSA MD CM:PNTRANS 0830 REY SOUSA MD 09/10/19 0828 interface
--- NOTE | ~2019-09-08 | DS ---
[place], [place] DISCHARGE SUMMARY NAME: HORACE QUINTERO [facility] #: [id number] UNIT #: [id number] ROOM: 427 DOCTOR: REY SOUSA MD BIRTHDATE: [birth year] DOS: 09/11/2019 DATE OF DISCHARGE: 09/11/2019 DIAGNOSES: 1. Primary osteoarthritis, right knee joint, status post knee replacement. 2. History of left knee replacement. 3. Benign hypertension. 4. Generalized anxiety disorder. HOSPITAL COURSE: This patient is 68 years old, very well known to us, comes in to the hospital for knee replacement. This was performed by Dr. Bryan and was admitted to the hospital. After the hospitalization, he has remained without new complaints. He is continued on his home medications. Pain is controlled by Percocet. He has been using the continuous passive motion equipment and is participating in physical therapy. His white cell count is normal. He has not had much of a drop in H and H. This morning's H and H is 12.1. Venous ultrasound was negative. Pathological report from the bone shows degenerative joint disease. The patient is relatively stable, plan to discharge home today if okay with Dr. Bryan. DISCHARGE MEDICATIONS: Lovenox 30 subcutaneous daily for 2 weeks and then aspirin 325 after that, Percocet 5/325 t.i.d. p.r.n., 21 tablets were given, TriCor 145 daily, lorazepam 1 mg daily, diltiazem 300 mg daily, hydrochlorothiazide 12.5 daily, latanoprost eye drops at bedtime, 50,000 units vitamin D q. weekly, Uroxatral 10 mg daily, Cialis 10 mg daily p.r.n., omeprazole 40 daily. REY SOUSA MD CM:DISCHARG 3 9 REY SOUSA MD 09/11/[birth year]31 interface
--- NOTE | ~2019-09-08 | PR ---
[place], [place] PROGRESS NOTE NAME: HORACE QUINTERO [facility] #: [id number] UNIT #: [id number] ROOM: 427 DOCTOR: REY SOUSA MD BIRTHDATE: [birth year] DOS: 09/11/2019 SUBJECTIVE: The patient is about the same, does not have any complaints. He did have a low-grade temperature during the night. OBJECTIVE: VITAL SIGNS: Pressure is 140/68, pulse of 84, respirations 16, temperature 98.6, T-max of 100.2. LUNGS: Clear. HEART: Regular. ABDOMEN: Soft. EXTREMITIES: Without any edema. ASSESSMENT AND PLAN: 1. Primary osteoarthritis, status post right knee replacement, stable postoperatively. 2. Low-grade fever with normal white cell count, no evidence of any ongoing infectious process. The patient should be able to go home today. PT/OT will be consulted. REY SOUSA MD CM:PNTRANS 6 5 REY SOUSA MD 09/11/[birth year]27 interface
--- NOTE | ~2019-09-08 | WRIGHTHP ---
[place], [place] PATIENT HISTORY AND PHYSICAL EXAM NAME: HORACE QUINTERO [facility] #: [id number] UNIT #: [id number] ROOM: 427 DOCTOR: REY SOUSA MD BIRTHDATE: [birth year] DOS: HISTORY OF PRESENT ILLNESS: The patient is 68 years old. The patient is very well known to us. He underwent right knee replacement. Postoperatively, feels good and is not having any complaints. Denies any chest pains, palpitations and shortness of breath. PAST MEDICAL HISTORY: Significant for: 1. Benign hypertension. 2. Generalized anxiety disorder. 3. Primary osteoarthritis with history of left knee replacement in 2017. MEDICATIONS: That he is on are Uroxatral 10 mg daily, latanoprost eyedrops, diltiazem CD 300, hydrochlorothiazide 12.5, lorazepam 1 mg daily, omeprazole 40 daily, fenofibrate 145 daily. SOCIAL HISTORY: Nonsmoker, does not use any alcohol. PHYSICAL EXAMINATION: GENERAL: He is awake and alert and oriented. VITAL SIGNS: Blood pressure is 149/73, pulse of 95, respirations 18, temperature 98.2. LUNGS: Clear. HEART: Regular. ABDOMEN: Obese, soft. EXTREMITIES: Heavily bandaged right leg. ASSESSMENT AND PLAN: A 68-year-old postop. 1. Following right knee replacement. Pain is controlled on Percocet. He has IV fluids running. 2. Benign hypertension, controlled. 3. Generalized anxiety disorder. Continue his Ativan. REY SOUSA MD CM:HISPHYS:PATIENT HISTORY AND PHYSICAL EXAMINATION 6 6 REY SOUSA MD 09/10/19 0816 interface
[~2019-09-08 00:33] MED LIST changes: -CIALIS10 MG PO; -GAVISCON ES TA1 EACH PO; -OMEPRAZOLE40 MG PO; -VITAMIN D50000 UNIT PO
--- NOTE | 2019-09-08 12:35 | NUR ---
Time: 1234 A 68 year old MALE admitted to under services of DR. LARS VILLA,REY. Pt. arrived via bed from [place]. Chief complaint: RIGHT KNEE ARTHROPLASTY. SANDIP BECERRA
--- NOTE | 2019-09-08 14:33 | NUR ---
PHYSICAL THERAPY Attempted to see pt 1330 after CPM off per OT pt in pain and RLE still numb also nsg in with patient at this time will try later in PM Nunu Calhoun PT
--- NOTE | 2019-09-08 15:00 | NUR ---
Occupational Therapy evaluation completed on 4 with full eval to follow. Precautions include WBAT RLE, TKA precautions,tse catheter, ww use,CPM machine use,moderate complexity level [id number] via chart review, testing and evaluation. Recommend OT per POC and home w/ and home health v.s.outpatient. Thank you. Adali Ellis OTR/l
[2019-09-08] MEDS ORDERED: VITAMIN D50000 UNIT PO (15:17)
[2019-09-08] MEDS ORDERED: UROXATRAL10 MG PO (15:18)
[2019-09-08] MEDS ORDERED: CIALIS10 MG PO (15:20)
[2019-09-08] MEDS ORDERED: GAVISCON ES TA1 EACH PO (15:23)
[2019-09-08] MEDS ORDERED: OMEPRAZOLE40 MG PO (15:24)
--- NOTE | 2019-09-08 15:31 | NUR ---
Nursing screen received and Occupational Therapy referral received. Thank you. Adali Ellis OTR/l
--- NOTE | 2019-09-08 15:41 | NUR ---
PHYSICAL THERAPY Gillianjuani completed full details to follow pt mod complexity level [id number] recomend home with HH upon discharge. PT to work on transfers, amb, steps, ROM activity Thank you Nunu Calhoun PT
--- NOTE | 2019-09-08 15:52 | NUR ---
PT MEDICATED WITH 2 PERCOCET TABS AT HIS REQUEST FOR C/O RIGHT KNEE SURGICAL SITE PAIN.
--- NOTE | 2019-09-08 17:37 | NUR ---
PT STATED PERCOCET WAS EFFECTIVE IN EASING HIS SUGICAL SITE KNEE PAIN.
--- NOTE | 2019-09-08 20:10 | NUR ---
[place] IS REQUESTIING SOMETHING TO HEL[ WITH CONSTIPATION SO COLACE WILL BE GIVEN AT THIS TIME. PT ALSO NOTES THAT HE IS IN PAIN AND WOULD LIKE HIS PERCOCET. HE RATES HIS PAIN A 4/10. PERCOCET PO I GIVEN AT THIS TIME. WILL CONTINUE TO MONITOR THE PATIENT
--- NOTE | 2019-09-08 22:49 | NUR ---
PT REQUESTING PRN DILAUDID. STATES HIS IS A 5/10 AT THIS TIME. DILAUDID IV IS GIVEN AT THIS TIME. WILL CONTINUE TO MONITOR THE PATIENT. CALL LIGHT WITHIN REACH
--- NOTE | 2019-09-08 23:00 | NUR ---
CPM WAS REMOVED AT THIS TIME. PLACE THE SCD BACK ON RIGHT LEG AND PLACED BLANKET UNER PT LEG AND PILLOW AT THE BOTTOM OF THE FOOT. PT STATES THAT HE IS COMFORTBALE AT THE TIME. WILL CONTINUE TO MONITOR THE PATIENT.
[2019-09-09] VITALS: BP 145/77
--- NOTE | 2019-09-09 01:06 | NUR ---
PT WAS WAKEN UP AT THIS TIME TO GIVE THE SCHEDULED TORADOL. PT RATES HIS PAIN A 2/10. WILL CONTINUE TO MONITOR THE PATIENT.
--- NOTE | 2019-09-09 01:45 | NUR ---
24 HR chart check completed.
--- NOTE | 2019-09-09 02:18 | NUR ---
COLACE NOT EFFECTIVE AT THIS TIME. DILAUDID WAS EFFECTIVE FOR THE RIGHT KNEE PAIN, PT RATES HIS PAIN NOW A 2/10. WILL CONTINUE TO MONITOR PT
--- NOTE | 2019-09-09 05:35 | NUR ---
HORACE QUINTERO [id number] Please refer to the physician's history and physical for past medical history, comorbid conditions, and allergies. Diagnosis: RIGHT KNEE OSTEOARTHRITIS E55.9 Z79.899 I10 PER CAMILLE Mike Score: 21,LOW OR NO RISK WOUND DESCRIPTIONS: Patient's surgical dressing intact no strike through drainage noted at time of assessment. Patient stated he will follow with Dr. Bryan upon discharge. No complaints at time of assessment. Surface the patient is resting on: Isoflex SKIN PREVENTION RECOMMENDATION: 1. Pressure redistribution support surface as appropriate 2. Elevate heels 3. Remove boots/TEDS every shift and reapply 4. Head of bed 30 degrees as tolerated 5. Assess nutrition and hydration 6. Manage moisture 7. Avoid the use of containment devices while in bed 8. Use absorptive products on surfaces limit layers of linens on bed 9. Turn and reposition every 1-2 hours in bed and every 1 hour in chair as tolerated 10. Weight shifts every 15 minutes while up in chair 11. Offloading with pillows or device to keep heels elevated off bed 12. Monitor skin at least every shift 13. Inspect under medical devices twice a day WOUND TREATMENT RECOMMENDATIONS: Continue post op dressing orders per Dr. Bryan
[2019-09-09 06:03] LABS: BASO % 0.3 % (0.0-1.0); EOS # 0.2 10*3/uL (0.0-0.4); EOS % 2.8 % (1.0-4.0); HEMATOCRIT 37.2 % (42.0-52.0); HEMOGLOBIN 12.7 g/dl (14.0-18.0); LYMPH # 1.2 10*3/uL (1.3-4.4); LYMPH % 15.5 % (27.0-41.0); MEAN CELL VOLUME 96.1 fl (80.0-94.0); MEAN CORPUSCULAR HGB 32.8 pg (27.0-31.0); MEAN CORPUSCULAR HGB CONC 34.1 g/dl (33.0-37.0); MONO # 1.2 10*3/uL (0.1-1.0); MONO % 15.4 % (3.0-9.0); NEUT % 65.9 % (47.0-73.0); PLATELET COUNT AUTOMATED 233 10*3/uL (130-400); RED BLOOD COUNT 3.87 10*6/uL (4.50-5.90); RED CELL DISTRI WIDTH 13.1 % (0-14.5); WHITE BLOOD COUNT 7.6 10*3/uL (4.8-10.8)
[2019-09-09 06:19] LABS: CREATININE 1.15 mg/dL (0.70-1.30)
[2019-09-09 08:00] VITALS: BP 144/74
--- NOTE | 2019-09-09 08:20 | NUR ---
PHYSICAL THERAPY Screen recieved, PT amy ordered and complted 09/08/19. Thank you. Nunu Calhoun PT
--- NOTE | 2019-09-09 08:36 | NUR ---
PT MEDICATED WITH PRN DILAUDID FOR C/O RIGHT KNEE PAIN. PT RATES PAIN 5/10. WILL MONITOR.
--- NOTE | 2019-09-09 09:00 | NUR ---
Security Tester in to talk to patient. Patient states lives at home with his . There are 2 steps in the home. Physician: Dr. Liat Mcintosh Pharmacy: print prescriptions as they pharmacy shop for the cheapest prices Home health services: would like [facility] at home Patient's level of ADLs: MINIMAL ASSIST Patient has working utilities: yes DME: walker, cane Follow-up physician's appointment after d/c: he prefers to make his own follow up appt after discharge Does patient want to access PORTAL?: no Discharge plan discussed with patient. He lives at home with his . He is independent in his ADLs and needs minimal assistance with ambulating. He does have a walker and a cane. Discussed short term rehab and he refuses. Discussed home health care services and he is agreeable. When provided with a list of agencies he chose [facility]. Discussed the CPM and he refuses to have it at home. He states he had it when he had his left knee done and told them they could take it back. When medically stable he will be discharged to home with [facility] services. His will provide transportation on discharge. LUCI CORONADO
--- NOTE | 2019-09-09 10:15 | NUR ---
PHYSICAL THERAPY Patient seen this am 1:1 for therapy visit and was supine in bed following patient care upon therapist arrival. Patient identified by name / and reports 3/10 R knee pain. Patient presented with R LE knee luke wrap, including increased post surgical edema and was educated on use of overhead trapeze bar for bed positioning / pain / comfort control. Patient demonstrated good understanding / use of trapeze bar completing supine to sit EOB transfer with MIN A of R LE support during transfer. Patient performed sit to stand transfer with use of wh walker standing support, MIN A x 1, while ambulating 15' x 1 to bathroom. Patient ambulated additional 35'x 1, wh walker, CGA, demonstrating antalgic "step to" gait pattern, WBAT on R LE. Patient returned to supine in bed with increased c/o of R knee pain, 5/10. Patient placed on CPM machine per nursing request, supine, 0 degree extension, 40 degree flexion with 5 second hold each. Patient instructed to notify nursing after 2 hour run cycle and was remained in bed with call light, tray table, cell phone and CPM control. Nurse notified on CPM start time as she will be monitoring patient and removing machine around 1230 pm. Will continue per POC as tolerated, total treatment time 18 minutes. Albin Roy, MEDICAL RECORDS SUPERVISOR
--- NOTE | 2019-09-09 10:34 | NUR ---
OT NOTE PATIENT SEEN OT THIS DATE 24 MINUTES. PATIENT IDENTIFIED BY NAME AND DATE OF . PATIENT COMPLETED SUPINE TO SIT EOB CGA RLE. COMPLETED SIT TO STAND FROM BED CGA WITH MIN VERBAL CUES TECHNIQUE AND FORM COMPLETING FUNCITONAL AMBULATION USE FWW TO AND FROM BATHROOM CGA COMPLETING TOILET TRANSFER USE GRABBAR CGA AND MIN VERBAL CUES TECHNIQUE AND FORM. COMPLETED SIT TO SUPINE BED CGA USE TRAPEZE BAR MIN VEBRAL CUES TECHNIQUE AND FORM. PATIENT COMPLETED UB DRESSING SBA WITH MIN VERBAL CUES AND COMPLETED LB DRESSING TO DOFF/LAN NONSLIP SOCKS SBA SEATED EOB. PATIENT IN BED END OF SESSION. CONTINUE TOWARDS PLAN OF CARE. JAMES ALVAREZ/Jill
[2019-09-09 12:00] VITALS: BP 149/79
--- NOTE | 2019-09-09 13:45 | NUR ---
OT TREATMENT Patient was seen this date, 09/09/19, for an afternoon OT treatment. Patient was supine in bed upon arrival with leg compressors on and knee slightly elevated with rolled towel. Patient's was in room. Patient was agreeable to OT treatment. Patient completed bed mobility with supervision to EOB. Patient performed a functional sit/stand with ww using an unsafe technique. Patient re-educated on placing one hand on the bed and second hand on the ww for transfers with good carryover for the remainder of the treatment. In stance, patient completed upper body dressing to challenge his dynamic standing balance. Patient completed mobility with COMPENSATION CONSULTANT and returned to room to complete a simulated car transfer. Patient demonstrated and verbalized a good understanding of the transfer. Patient returned to supine in bed, knee elevated with rolled towel, leg compressors on, and call hernandez within reach. Patient progressing appropriately. Continue with POC. KANDICE Caraballo/L
--- NOTE | 2019-09-09 13:50 | NUR ---
PHYSICAL THERAPY Patient seen this pm 1;1 for therapy visit and supine in bed with his present upon therapist arrival. Patient identified by name / and presented with IV treatment. Patient was very pleasant transfering supine to sit EOB with CGA, then sit to stand CGA x 1. Patient ambulated with use of wh walker, 75'x 1, CGA, demonstrating smoother "step to" gait sequence with improved heel strike. Patient reported mild 3/10 R knee pain and remains WBAT on R LE. Patient returned to supine in bed CGA and instructed on supine R LE therex. Patient performed Quad / Glute sets with 5 second hold, ankle pumps, SLR x 2, AAROM due to increased pain / muscle weakness. Patient remained in bed with call light, tray table and cell phone. Will continue per POC as tolerated, total treatment time 23 minutes. Albin Roy, WAITER/WAITRESS TOURIST CLASS
--- NOTE | 2019-09-09 14:59 | NUR ---
PT C/O 05/06 PAIN TO RIGHT KNEE AND MEDICATED WITH PO PERCOCET PER ORDER.WILL MONITOR.
[2019-09-09 16:10] VITALS: BP 138/71
[2019-09-09 20:00] VITALS: BP 133/76
--- NOTE | 2019-09-09 20:10 | NUR ---
PATIENT TAKEN OFF CMP MACHINE. PATIENT DENIES ANY PAIN WHILE ON THE CMP, BUT DOES ONCE HE IS OFF. PERCOCET GIVEN. WILL MONITOR AND REASSESS.
--- NOTE | 2019-09-09 22:00 | NUR ---
PERCOCET EFFECTIVE FOR PAIN.
--- NOTE | 2019-09-09 23:45 | NUR ---
24 HR chart check completed.
[2019-09-10] VITALS: BP 149/73
--- NOTE | 2019-09-10 05:42 | NUR ---
PATIENT STATES HE FEELS PRETTY GOOD, BUT HAVING SOME PAIN IN KNEE, DOESNT WANT IT TO GET WORSE. PERCOCET GIVEN. WILL MONITOR AND REASSESS.
--- NOTE | 2019-09-10 05:47 | NUR ---
PATIENT DOESNT WANT TO BE PUT ON THE CMP MACHINE UNTIL AFTER BREAKFAST. PATIENT ALSO REQUESTED THAT THE LESLIE BE TAKEN OUT WHEN HE GOES TO GET WASHED UP. WILL NOTIFY RN.
[2019-09-10 06:55] LABS: BASO % 0.4 % (0.0-1.0); EOS # 0.3 10*3/uL (0.0-0.4); EOS % 4.1 % (1.0-4.0); HEMATOCRIT 37.1 % (42.0-52.0); HEMOGLOBIN 12.6 g/dl (14.0-18.0); LYMPH # 1.1 10*3/uL (1.3-4.4); LYMPH % 13.6 % (27.0-41.0); MEAN CELL VOLUME 97.1 fl (80.0-94.0); MEAN PLATELET VOLUME 9.2 fl (9.6-12.3); MONO # 1.1 10*3/uL (0.1-1.0); MONO % 13.4 % (3.0-9.0); NEUT # 5.4 10*3/uL (2.3-7.9); NEUT % 68.2 % (47.0-73.0); PLATELET COUNT AUTOMATED 248 10*3/uL (130-400); RED BLOOD COUNT 3.82 10*6/uL (4.50-5.90)
[2019-09-10 08:00] VITALS: BP 139/73
--- NOTE | 2019-09-10 09:00 | NUR ---
Claim Review Medical Director in to see patient. No new needs or request at this time. When medically stable he will be discharged to home with [facility] services. Per multidisciplinary discharge planning meeting today is POD #2, plan is to discharge patient to home tomorrow with home health services.
--- NOTE | 2019-09-10 09:55 | NUR ---
PHYSICAL THERAPY Patient seen this am 1:1 for therapy visit and was supine in bed upon therapist arrival. Patient identified by name / and reports 3/10 R knee pain. Patient transfers supine to sit EOB, CGA, demonstrating a little difficulty with R LE abduction. Patient used his B UE to assist in moving R LE and needed a minute or so to collect himself before standing. Patient transfers sit to stand CGA, use of wh walker for support and ambulated 50'x 1, CGA, wh walker to stairwell for step training. Patient instructed on safe stair navigation as he has 2 entry steps to home and no handrail. Patient attempted side step technique with therapist SALES REPRESENTATIVE PUBLIC UTILITIES/MOD A support, however unable to complete step up secondary to increased Anxiety. Patient very fearful of falling with decreased trust of R LE support. Patient also quick onset of fatigue and was seated in w/c to rest. Patient educated and received therapist demonstration of improved technique, however c/o of increased Nausea, returning to supine in bed via w/c transport. Patient c/o of increased R LE pain 6/10 as Nursing notified of patient new c/o of Nausea. CPM machnine was placed on patient per nursing request as patient remained in bed with call light, tray table, telephone and CPM remote control. Will continue per POC as tolerated, total treatment time 20 minutes. Albin Roy, SCOUTS
--- NOTE | 2019-09-10 09:59 | NUR ---
LESLIE CATHETER REMOVED PER DR MCDONALD.
--- NOTE | 2019-09-10 10:00 | NUR ---
PT MEDICATED WITH DILAUDID 2MG IV AND ZOFRAN 4MG IV AT PT'S REQUEST FOR SURGICAL SITE KNEE PAIN AND NAUSEA AFTER WORKING WITH THERAPY THIS AM.
--- NOTE | 2019-09-10 10:00 | NUR ---
OT NOTE Pt was seen this A.M. 1:1 for 20 minute OT session. Upon arrival pt was supine in bed. Pt identified by name and and had complaints of 3/10 R knee pain. Pt transferred supine to sit EOB with SBA. Sit to stand completed from bed level with CGA and use of w/w for UE support. While standing pt donned gown with SBA for safety. Challenged pt's dynamic standing balance needed for increased I and enhanced safety in self care tasks. While weight shifting. crossing midline, and reaching over all planes of motion pt was able to maintain F+/G- standing balance. Functional mobility was completed to the bathroom and back with CGa and use of w/w with occasional verbal prompts to slow down due to being impulsive. Pt stood while completing toileting task with SBA for safety. Pt then transferred back into bed sit to supine with Ale for assist with RLE. Pt was left supine in bed with call light in hand, tray table in place, and phone in reach. Continue with rec D/C plan to home with . KIM Cash/Jill
--- NOTE | 2019-09-10 10:30 | NUR ---
Faxed new home health order to [facility]
--- NOTE | 2019-09-10 11:17 | NUR ---
PT STATED DILAUDID AND ZOFRAN WERE EFFECTIVE IN EASING HIS PAIN AND NAUSEA.
[2019-09-10 12:00] VITALS: BP 134/65
--- NOTE | 2019-09-10 12:45 | NUR ---
PHYSICAL THERAPY Patient seen this pm 1:1 for therapy visit and was supine in bed upon therapist arrival. Patient identified by name / and was joined by his who was present for entire therapy session. Patient reports only mild R knee pain 3/10 and transfers supine to sit EOB, then sit to stand CGA x 1. Patient performed SPT to w/c and was transported to [facility] for step training, including Caregiver instruction for safe step navigation. Patient has 2 garage entry steps to access home with no handrail and per consult with Supervising Therapist reccommend handrail be installed at home as a condition for pre discharge planning. Patient instructed on safe step sequence with single handrail support and single Axillary crutch, navigating up / down 1 step x 2 trials MIN A on first attempt and CGA second attempt. Caregiver observed each trial and was also instructed on Safe guarding technique, then participated as patient safely completed 2 additional 2 step trials, CGA, single handrail / single axillary crutch. Patient demonstrated increased confidence and was happy with his therapy progress this session Patient ambulated 50'x 1 upon return to EOB sit, CGA, use of wh walker. Patient remained EOB sit following treatment voicing no new complaints with call light and telephone. Will continue per POC as tolerated, total treatment time 25 minutes. Albin Roy, BUDGET EXAMINER
--- NOTE | 2019-09-10 15:19 | NUR ---
OCCUPATIONAL THERAPY CO-SIGN I approve of the Occupational Therapy notes written above. JULIET PENNY OTR/Jill
--- NOTE | 2019-09-10 15:31 | NUR ---
Glass Bender in to see patient. Informed [facility] services are set up for him at home. He has a walker and a cane at home. Grab bar for the steps to go inside of his house will be installed tomorrow morning.
--- NOTE | 2019-09-10 15:39 | NUR ---
PHYSICAL THERAPY Assisted in PT session this PM wt ALUMINIZER due to concern for safe home entry as pt has no HR. 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 No other access into home with HR. Discussed HR vs temp ramp option and pt/ prefers and will look to have HR installed. Please refer to ALUMINIZER note for details for HR/crutch on steps. ALUMINIZER also spoke with CM reg need for HR prior to discharge for safety. Will issue crutch to use for home. Will follow in AM for further stair training. Nunu Calhoun PT
[2019-09-10 16:00] VITALS: BP 159/73
--- NOTE | 2019-09-10 19:25 | NUR ---
PATIENT PLACED ON CPM, PATIENT COULD ONLY TOLERATE 45 DEGREES.
[2019-09-10 20:00] VITALS: BP 138/66
[2019-09-11] VITALS: BP 140/68
--- NOTE | 2019-09-11 06:20 | NUR ---
PATIENT MEDICATED WITH PERCOCET 2 TABS PER PRN ORDER FOR C/O LEG AND HEADACHE. RATED PAIN A 4-5/10 WITH 10 BEING THE WORST. SEE EMAR. REINFORCED USE OF CALL LIGHT.
[2019-09-11 06:36] LABS: BASO % 0.3 % (0.0-1.0); EOS # 0.3 10*3/uL (0.0-0.4); EOS % 3.2 % (1.0-4.0); HEMATOCRIT 35.1 % (42.0-52.0); HEMOGLOBIN 12.1 g/dl (14.0-18.0); MEAN CELL VOLUME 95.9 fl (80.0-94.0); MEAN CORPUSCULAR HGB 33.1 pg (27.0-31.0); MEAN CORPUSCULAR HGB CONC 34.5 g/dl (33.0-37.0); MEAN PLATELET VOLUME 9.1 fl (9.6-12.3); MONO # 1.2 10*3/uL (0.1-1.0); MONO % 14.9 % (3.0-9.0); NEUT # 5.4 10*3/uL (2.3-7.9); NEUT % 68.2 % (47.0-73.0); PLATELET COUNT AUTOMATED 262 10*3/uL (130-400); RED BLOOD COUNT 3.66 10*6/uL (4.50-5.90); RED CELL DISTRI WIDTH 12.8 % (0-14.5); WHITE BLOOD COUNT 7.8 10*3/uL (4.8-10.8)
[2019-09-11 08:00] VITALS: BP 127/65
[2019-09-11] MEDS ORDERED: Percocet 325 MG1 TAB PO (08:20)
[2019-09-11] MEDS ORDERED: ENOXAPARIN30 MG/0.2 SC (08:20)
--- NOTE | 2019-09-11 09:00 | NUR ---
case management spoke with Elizabeth at [facility], notified her that patient is being discharged to home today
--- NOTE | 2019-09-11 09:05 | NUR ---
PHYSICAL THERAPY Patient seen this am 1;1 for therapy visit and was supine in bed upon therapist arrival. Patient indentified by name / and reports very little R knee pain at this time. Patient presented with R knee luke wrap removed and only sterile strip covering incision. Patient transfers supine to sit and sit to stand SBA and ambulates 75'x 1, use of wh walker, CGA, to stairwell. Patient reveiwed safe step navigation and safely negotiated up / down 2 steps x 2 trials with use of single axillary crutch / single handrail support. Patient demonstrated improved technique, no LOB and increased confidence in completing stair training this session. Patient returned 75'x 1 to EOB sit, wh walker, CGA, demonstrating "step to" gait pattern. Patient also instructed on seated heel slide and R knee flexion stretch recording Goniometry R knee seated, AROM flexion 69 degrees and AAROM 74 degrees. Patient remained EOB sit with OT medical administrative assistant and will continue per POC as tolerted. Total treatment time 23 minutes. Albin Roy, WATER PURIFIER
--- NOTE | 2019-09-11 09:30 | NUR ---
OT NOTE Pt was seen this A.M. 1:1 for 25 minute OT session. Upon arrival pt was supine in bed. Pt identified by name and and had complaints of 3/10 R knee pain. Pt transferred supine to sit EOB with SBA. While sitting EOB pt donned B socks with supervision. Sit to stand completed from bed level with supervision and use of w/w for UE support. While standing pt donned gown with SBA for safety. Functional mobility was then completed into the bathroom with supervision and use of w/w. There he transferred on/off standard commode with supervision and clothing management completed with supervision. Pt then stood sink side while washing his hands, face, and hair with supervision. Functional mobility was then completed back to the EOB where he transferred sit to supine with SBA. There he was left with call light in hand, tray table in place, and phone in reach. Continue with rec D/C plan to home with . KIM Cash/Jill
[2019-09-11] MEDS ORDERED: OXYCODONE HCL5 M1 PO (13:20)
--- NOTE | 2019-09-11 14:21 | NUR ---
Discharge instructions reviewed with patient/family. Patient receptive and verbalizes understanding. Follow-up care arranged. Written instructions given to patient/family. ISAAC TARIQ
--- NOTE | 2019-09-11 14:46 | NUR ---
Nutritional Support Services Note: Appetite is good for meals. Regular diet as ordered. Healing surgical incision/knee replacement. Encouraged increased kcal and protein to promote healing. No other nutrition intervention needed at this time. Will follow as needed. Renea Alba Rdn Ld
--- NOTE | 2019-09-11 15:22 | NUR ---
PHYSICAL THERAPY CO-SIGN I approve of the Physical Therapy notes written above. Nunu Calhoun PT
--- NOTE | 2019-09-14 08:04 | NUR ---
PHYSICAL THERAPY CO-SIGN I approve of the Physical Therapy notes written above Nunu Calhoun PT
--- NOTE | 2019-09-14 16:13 | NUR ---
OCCUPATIONAL THERAPY CO-SIGN I approve of the Occupational Therapy notes written above. JULIET PENNY OTR/Jill
== END 2019-09-11 14:21 | disposition home health service (06) | DRG 470 ==
LOC: SDC 00:33 → 4E 07:05 → SDC 07:30 → 4E 09-11 14:21
PROVIDERS: Orthopaedic Surgery; ADMIT Internal Medicine
PROC: 0SRC0J9 Replacement of Right Knee Joint with Synthetic Substitute, Cemented, Open Approach (ICD-10-PCS; principal; 2019-09-08)
DX: M17.11 Unilateral primary osteoarthritis, right knee (principal); I10 Essential (primary) hypertension; F41.1 Generalized anxiety disorder; Z96.652 Presence of left artificial knee joint

== ENCOUNTER → 2019-11-17 | Outpatient (CLI) | payer MEDICARE ==
[~2019-11-17] MED LIST changes: +CIALIS10 MG PO; +GAVISCON ES TA1 EACH PO; +OMEPRAZOLE40 MG PO; +VITAMIN D50000 UNIT PO
== END | disposition home or self-care (01) ==
LOC: ORTHO 02:06
DX: M25.561 Pain in right knee (principal); Z96.651 Presence of right artificial knee joint

== ENCOUNTER → 2019-12-25 | Outpatient (CLI) | payer MEDICARE | END | disposition home or self-care (01) | LOC: ORTHO 00:20 | DX: M25.40 Effusion, unspecified joint (principal) ==

== ENCOUNTER → 2020-05-19 | Outpatient (CLI) | payer MEDICARE ==
[2020-05-20 12:11] LABS: PROSTATE SPECIFIC AG FREE 1.4 ng/mL; PROSTATE SPECIFIC AG, SERUM 5.6 ng/mL (0.0-4.0)
== END | disposition home or self-care (01) ==
LOC: LAB 09:33
PROVIDERS: Urology
DX: R97.20 Elevated prostate specific antigen [PSA] (principal); R53.83 Other fatigue

== ENCOUNTER 2020-05-26 21:13 | Emergency (ER) | payer MEDICARE ==
[~2020-05-26] VITALS: Wt 77.1 kg
[2020-05-26 21:49] LABS: BASO % 0.4 % (0.0-1.0); EOS # 0.3 10*3/uL (0.0-0.4); EOS % 3.2 % (1.0-4.0); HEMATOCRIT 43.3 % (42.0-52.0); LYMPH # 1.6 10*3/uL (1.3-4.4); LYMPH % 19.7 % (27.0-41.0); MEAN CELL VOLUME 93.9 fl (80.0-94.0); MEAN CORPUSCULAR HGB 32.8 pg (27.0-31.0); MEAN CORPUSCULAR HGB CONC 34.9 g/dl (33.0-37.0); MEAN PLATELET VOLUME 8.7 fl (9.6-12.3); MONO # 0.8 10*3/uL (0.1-1.0); MONO % 9.6 % (3.0-9.0); NEUT # 5.3 10*3/uL (2.3-7.9); PLATELET COUNT AUTOMATED 260 10*3/uL (130-400); RED BLOOD COUNT 4.61 10*6/uL (4.50-5.90); RED CELL DISTRI WIDTH 13.3 % (0-14.5); WHITE BLOOD COUNT 7.9 10*3/uL (4.8-10.8)
[2020-05-26 22:11] LABS: ALBUMIN 3.5 gm/dl (3.1-4.5); ALKALINE PHOSPHATASE 51 U/L (45-117); BUN 18 mg/dl (7-24); CHLORIDE 111 mmol/L (98-107); CREATININE 1.38 mg/dL (0.70-1.30); POTASSIUM 3.5 mmol/L (3.5-5.1); SGOT/AST 30 IU/L (3-35); SGPT/ALT 32 U/L (12-78); SODIUM 140 mmol/L (136-145); TOTAL PROTEIN 6.4 gm/dL (6.4-8.2)
[2020-05-26 22:16] LABS: TROPONIN I < 0.015 ng/ml (<0.045)
[2020-05-26 23:18] VITALS: BP 128/60
[2020-05-26] MEDS ORDERED: PREDNISONE20 M1 PO (23:18)
[2020-05-26] MEDS ORDERED: PEPCID40 MG PO (23:18)
== END 2020-05-26 23:30 | disposition home or self-care (01) ==
LOC: ED 21:13
PROVIDERS: Emergency Medicine
DX: T63.441A Toxic effect of venom of bees, accidental (unintentional), initial encounter (principal); R07.9 Chest pain, unspecified; I10 Essential (primary) hypertension; K21.9 Gastro-esophageal reflux disease without esophagitis; Y92.89 Other specified places as the place of occurrence of the external cause

== ENCOUNTER → 2020-05-31 | Outpatient (CLI) | payer MEDICARE ==
[~2020-05-31] MED LIST changes: +ASPIRIN81 M1 PO; +PEPCID40 MG PO; +PREDNISONE20 M1 PO
--- NOTE | 2020-05-31 08:15 | NUR ---
INFORMED CONSENT OBTAINED FOR EXERCISE CARDIOLITE STRESS TEST WITH DR. SOUSA. RESTING EKG WITH OCCASIONAL PVC'S WITH A RESTING HR OF 67 WITH BP OF 146/82 IN SUPINE POSITION AND HR OF 76 WITH BP OF 140/78 IN STANDING POSITION. PT COMPLETED 10:20 OF A SANDI PROTOCOL WITH COMPLETION OF 1:20 OF STAGE IV AT 4.2 MPH AND 16% GRADE. REACHED A PEAK HR OF 138 WHICH IS 91% OF PREDICTED MAX WITH A PEAK BP OF 160/74. HAD NO CHEST PAIN WITH EXERCISE AND NO ST CHANGES. PVC'S LESS WITH EXERCISE. HAS A HIGH EXERCISE TOLERANCE. LAST RECOVERY HR OF 97 WITH BP OF 144/74. AWAITING SCANNING IN STABLE CONDITION.
== END | disposition home or self-care (01) ==
LOC: CARD 00:08
DX: R07.89 Other chest pain (principal)

== ENCOUNTER → 2020-06-20 | Outpatient (CLI) | payer MEDICARE ==
[2020-06-20 10:49] LABS: BASO % 0.5 % (0.0-1.0); EOS # 0.2 10*3/uL (0.0-0.4); HEMATOCRIT 46.5 % (42.0-52.0); LYMPH # 1.2 10*3/uL (1.3-4.4); LYMPH % 31.4 % (27.0-41.0); MEAN CELL VOLUME 94.3 fl (80.0-94.0); MEAN CORPUSCULAR HGB 32.3 pg (27.0-31.0); MEAN CORPUSCULAR HGB CONC 34.2 g/dl (33.0-37.0); MEAN PLATELET VOLUME 9.2 fl (9.6-12.3); MONO # 0.5 10*3/uL (0.1-1.0); NEUT # 1.9 10*3/uL (2.3-7.9); NEUT % 49.8 % (47.0-73.0); PLATELET COUNT AUTOMATED 294 10*3/uL (130-400); RED BLOOD COUNT 4.93 10*6/uL (4.50-5.90); RED CELL DISTRI WIDTH 13.2 % (0-14.5); WHITE BLOOD COUNT 3.8 10*3/uL (4.8-10.8)
[2020-06-20 10:58] LABS: ACT PARTIAL THROMBO TIME 29.5 SECONDS (20.0-32.1)
[2020-06-20 11:26] LABS: ALBUMIN 3.9 gm/dl (3.1-4.5); BUN 16 mg/dl (7-24); CHLORIDE 108 mmol/L (98-107); POTASSIUM 3.9 mmol/L (3.5-5.1); SODIUM 138 mmol/L (136-145)
[2020-06-20 11:29] LABS: ALKALINE PHOSPHATASE 61 U/L (45-117); SGOT/AST 22 IU/L (3-35); SGPT/ALT 29 U/L (12-78)
== END | disposition home or self-care (01) ==
LOC: LAB 09:32
PROVIDERS: Urology
DX: Z01.818 Encounter for other preprocedural examination (principal); D68.8 Other specified coagulation defects; I10 Essential (primary) hypertension

== ENCOUNTER 2020-07-23 09:49 | Emergency (ER) | payer MEDICARE ==
[~2020-07-23] VITALS: Ht 172.7 cm; Wt 77.1 kg
[2020-07-23 09:54] VITALS: BP 126/70
[2020-07-23 10:24] LABS: BILIRUBIN Negative; BLOOD 2+ (NEGATIVE); CLARITY Clear (CLEAR); COLOR Yellow (YELLOW); GLUCOSE Negative; KETONE Negative; NITRITE Negative (NEGATIVE); PH 6.5 (4.5-8.0); SPECIFIC GRAVITY 1.015 (1.001-1.030); UROBILINOGEN 0.2 E.U./dl (0.0-1.0)
[2020-07-23 10:25] LABS: LEUKO ESTERASE 3+ (NEGATIVE)
[2020-07-23 10:36] LABS: WBC 51-100 wbc/hpf (0-5)
[2020-07-23 10:37] LABS: RBC 31-40 rbc/hpf (0-2)
[2020-07-23 10:38] LABS: BACTERIA 3+
[2020-07-23] MEDS ORDERED: SEPTDS PO ×2 (10:43→11:02)
[2020-07-23] MEDS ORDERED: NORCO 5-325 TA1 EACH PO (10:47)
== END 2020-07-23 10:48 | disposition home or self-care (01) ==
LOC: ED 09:49
PROVIDERS: Emergency Medicine
DX: N39.0 Urinary tract infection, site not specified (principal); Z91.030 Bee allergy status; Z79.899 Other long term (current) drug therapy

== ENCOUNTER 2020-07-23 16:04 | Emergency (ER) | payer MEDICARE ==
[~2020-07-23 16:04] MED LIST changes: +NORCO 5-325 TA1 EACH PO; +SEPTDS PO
[2020-07-23 17:19] VITALS: BP 119/72
== END 2020-07-23 17:55 | disposition home or self-care (01) ==
LOC: ED 16:04
DX: N39.0 Urinary tract infection, site not specified (principal); R33.9 Retention of urine, unspecified; F41.9 Anxiety disorder, unspecified; K21.9 Gastro-esophageal reflux disease without esophagitis; I10 Essential (primary) hypertension; Z79.899 Other long term (current) drug therapy; Z88.8 Allergy status to other drugs, medicaments and biological substances; Z79.82 Long term (current) use of aspirin

== ENCOUNTER → 2021-01-27 | Outpatient (CLI) | payer MEDICARE | END | disposition home or self-care (01) | LOC: COVID19 10:23 | PROVIDERS: ATTEND Internal Medicine | DX: R05 Cough (principal); R50.9 Fever, unspecified; Z20.822 Contact with and (suspected) exposure to COVID-19 ==

== ENCOUNTER → 2021-02-14 | Outpatient (CLI) | payer MEDICARE ==
[2021-02-14 09:37] LABS: BASO % 0.7 % (0.0-1.0); EOS # 0.3 10*3/uL (0.0-0.4); EOS % 5.8 % (1.0-4.0); HEMATOCRIT 48.3 % (42.0-52.0); LYMPH # 1.5 10*3/uL (1.3-4.4); LYMPH % 26.4 % (27.0-41.0); MEAN CELL VOLUME 94.9 fl (80.0-94.0); MEAN CORPUSCULAR HGB 32.6 pg (27.0-31.0); MEAN CORPUSCULAR HGB CONC 34.4 g/dl (33.0-37.0); MEAN PLATELET VOLUME 8.5 fl (9.6-12.3); MONO # 0.7 10*3/uL (0.1-1.0); MONO % 12.1 % (3.0-9.0); NEUT # 3.1 10*3/uL (2.3-7.9); NEUT % 54.8 % (47.0-73.0); PLATELET COUNT AUTOMATED 376 10*3/uL (130-400); RED BLOOD COUNT 5.09 10*6/uL (4.50-5.90); RED CELL DISTRI WIDTH 12.3 % (0-14.5); WHITE BLOOD COUNT 5.7 10*3/uL (4.8-10.8)
[2021-02-14 09:56] LABS: ALBUMIN 3.7 gm/dl (3.1-4.5); BUN 13 mg/dl (7-24); CHLORIDE 108 mmol/L (98-107); POTASSIUM 3.5 mmol/L (3.5-5.1); SGOT/AST 23 IU/L (3-35); SGPT/ALT 30 U/L (12-78); SODIUM 140 mmol/L (136-145)
[2021-02-14 10:04] LABS: ALKALINE PHOSPHATASE 58 U/L (45-117); CHOLESTEROL 196 mg/dL (<200); CREATININE 1.19 mg/dL (0.70-1.30); HDL CHOLESTEROL 56 mg/dl (40-60); LDL CHOLESTEROL 111 mg/dL (9-159); TOTAL PROTEIN 7.2 gm/dL (6.4-8.2); TRIGLYCERIDES 144 mg/dl (<150); VLDL CHOLESTEROL 29 mg/dL (6-40)
[2021-02-14 11:05] LABS: VITAMIN D, 25-HYDROXY 38.6 ng/mL (30-100)
== END | disposition home or self-care (01) ==
LOC: LAB 09:04
PROVIDERS: ATTEND Internal Medicine
DX: Z00.01 Encounter for general adult medical examination with abnormal findings (principal); J98.4 Other disorders of lung; I10 Essential (primary) hypertension; E78.5 Hyperlipidemia, unspecified; E55.9 Vitamin D deficiency, unspecified; R05 Cough

== ENCOUNTER → 2021-04-06 | Outpatient (CLI) | payer MEDICARE ==
[2021-04-06 11:09] LABS: BASO % 0.6 % (0.0-1.0); EOS # 0.5 10*3/uL (0.0-0.4); EOS % 7.7 % (1.0-4.0); HEMATOCRIT 48.3 % (42.0-52.0); LYMPH # 1.5 10*3/uL (1.3-4.4); LYMPH % 23.9 % (27.0-41.0); MEAN CELL VOLUME 94.9 fl (80.0-94.0); MEAN CORPUSCULAR HGB 32.2 pg (27.0-31.0); MEAN PLATELET VOLUME 8.8 fl (9.6-12.3); MONO # 0.8 10*3/uL (0.1-1.0); NEUT # 3.5 10*3/uL (2.3-7.9); NEUT % 55.5 % (47.0-73.0); PLATELET COUNT AUTOMATED 307 10*3/uL (130-400); RED BLOOD COUNT 5.09 10*6/uL (4.50-5.90); RED CELL DISTRI WIDTH 13.2 % (0-14.5); WHITE BLOOD COUNT 6.2 10*3/uL (4.8-10.8)
[2021-04-06 11:39] LABS: ALBUMIN 3.6 gm/dl (3.1-4.5); ALKALINE PHOSPHATASE 57 U/L (45-117); BUN 17 mg/dl (7-24); CHLORIDE 108 mmol/L (98-107); CREATININE 1.22 mg/dL (0.70-1.30); POTASSIUM 3.8 mmol/L (3.5-5.1); SGOT/AST 23 IU/L (3-35); SGPT/ALT 30 U/L (12-78); SODIUM 136 mmol/L (136-145); TOTAL PROTEIN 7.1 gm/dL (6.4-8.2)
== END | disposition home or self-care (01) ==
LOC: LAB 10:35
PROVIDERS: ATTEND Urology
DX: Z12.5 Encounter for screening for malignant neoplasm of prostate (principal); R31.9 Hematuria, unspecified

== ENCOUNTER → 2021-05-30 | Outpatient (CLI) | payer MEDICARE ==
[2021-05-31 12:07] LABS: PROSTATE SPECIFIC AG FREE 1.39 ng/mL; PROSTATE SPECIFIC AG, SERUM 5.3 ng/mL (0.0-4.0)
== END | disposition home or self-care (01) ==
LOC: LAB 12:55
PROVIDERS: Urology; ATTEND Internal Medicine
DX: E79.0 Hyperuricemia without signs of inflammatory arthritis and tophaceous disease (principal); D40.0 Neoplasm of uncertain behavior of prostate

== ENCOUNTER → 2021-10-18 | Outpatient (CLI) | payer MEDICARE | END | disposition home or self-care (01) | LOC: US 08:45 | PROVIDERS: ATTEND Internal Medicine | DX: I65.23 Occlusion and stenosis of bilateral carotid arteries (principal); G93.89 Other specified disorders of brain ==

== ENCOUNTER → 2021-10-31 | Outpatient (CLI) | payer MEDICARE | LOC: COVID19 16:00 | PROVIDERS: ATTEND Internal Medicine | DX: Z11.52 Encounter for screening for COVID-19 (principal); Z20.822 Contact with and (suspected) exposure to COVID-19 ==

== ENCOUNTER → 2022-02-05 | Outpatient (CLI) | payer MEDICARE | END | disposition home or self-care (01) | LOC: MRI 01-24 14:00 | PROVIDERS: ATTEND Internal Medicine | DX: M47.26 Other spondylosis with radiculopathy, lumbar region (principal); M48.061 Spinal stenosis, lumbar region without neurogenic claudication; N28.1 Cyst of kidney, acquired ==

== ENCOUNTER → 2022-06-23 | Outpatient (CLI) | payer MEDICARE ==
[2022-06-23 09:21] LABS: BASO % 0.4 % (0.0-1.0); EOS # 0.3 10*3/uL (0.0-0.4); EOS % 6.1 % (1.0-4.0); HEMATOCRIT 46.3 % (42.0-52.0); LYMPH # 1.3 10*3/uL (1.3-4.4); MEAN CELL VOLUME 96.1 fl (80.0-94.0); MEAN CORPUSCULAR HGB CONC 35.4 g/dl (33.0-37.0); MEAN PLATELET VOLUME 8.9 fl (9.6-12.3); MONO # 0.4 10*3/uL (0.1-1.0); MONO % 9.9 % (3.0-9.0); NEUT # 2.4 10*3/uL (2.3-7.9); NEUT % 53.4 % (47.0-73.0); PLATELET COUNT AUTOMATED 269 10*3/uL (130-400); RED BLOOD COUNT 4.82 10*6/uL (4.50-5.90); RED CELL DISTRI WIDTH 13.6 % (0-14.5); WHITE BLOOD COUNT 4.5 10*3/uL (4.8-10.8)
[2022-06-23 09:38] LABS: BUN 14 mg/dl (7-24); CHLORIDE 113 mmol/L (98-107); CHOLESTEROL 200 mg/dL (<200); CREATININE 1.05 mg/dL (0.70-1.30); POTASSIUM 3.9 mmol/L (3.5-5.1); SGOT/AST 25 IU/L (3-35); SGPT/ALT 32 U/L (12-78); SODIUM 141 mmol/L (136-145); TOTAL PROTEIN 6.7 gm/dL (6.4-8.2); TRIGLYCERIDES 94 mg/dl (<150)
[2022-06-23 09:43] LABS: ALKALINE PHOSPHATASE 53 U/L (45-117); FREE T4 0.84 ng/dl (0.76-1.46); LDL CHOLESTEROL 114 mg/dL (9-159)
[2022-06-23 10:06] LABS: VITAMIN D, 25-HYDROXY 42.1 ng/mL (30-100)
== END | disposition home or self-care (01) ==
LOC: LAB 08:50
PROVIDERS: ATTEND Internal Medicine
DX: Z12.5 Encounter for screening for malignant neoplasm of prostate (principal); Z13.89 Encounter for screening for other disorder; Z13.0 Encounter for screening for diseases of the blood and blood-forming organs and certain disorders involving the immune mechanism; E78.2 Mixed hyperlipidemia; E55.9 Vitamin D deficiency, unspecified

== ENCOUNTER 2022-08-12 10:47 | Emergency (ER) | payer MEDICARE ==
[~2022-08-12] VITALS: Ht 172.7 cm; Wt 77.1 kg
[2022-08-12 11:06] VITALS: BP 150/78
[2022-08-12] MEDS ORDERED: HYDROCODON-ACE1 EACH PO (12:39)
[2022-08-12] MEDS ORDERED: HYDROCODONE-AC1 EACH PO (13:06)
== END 2022-08-12 12:54 | disposition home or self-care (01) ==
LOC: ED 10:47
DX: S46.911A Strain of unspecified muscle, fascia and tendon at shoulder and upper arm level, right arm, initial encounter (principal); M25.511 Pain in right shoulder; Z91.030 Bee allergy status; Z79.899 Other long term (current) drug therapy; Z79.82 Long term (current) use of aspirin; Z90.49 Acquired absence of other specified parts of digestive tract; Z90.89 Acquired absence of other organs; W18.39XA Other fall on same level, initial encounter; Y93.89 Activity, other specified; Y92.89 Other specified places as the place of occurrence of the external cause; Y99.8 Other external cause status

== ENCOUNTER 2022-08-24 18:26 | Emergency (ER) | payer MEDICARE ==
[~2022-08-24] VITALS: Ht 172.7 cm; Wt 77.1 kg
[~2022-08-24 18:26] MED LIST changes: +HYDROCODON-ACE1 EACH PO; +HYDROCODONE-AC1 EACH PO
[2022-08-24 21:17] VITALS: BP 158/78
== END 2022-08-24 21:25 | disposition home or self-care (01) ==
LOC: ED 18:26
DX: I10 Essential (primary) hypertension (principal); Z91.030 Bee allergy status; Z88.8 Allergy status to other drugs, medicaments and biological substances; Z79.899 Other long term (current) drug therapy; Z79.82 Long term (current) use of aspirin; Z90.49 Acquired absence of other specified parts of digestive tract; Z90.89 Acquired absence of other organs

== ENCOUNTER → 2022-09-17 | Outpatient (CLI) | payer MEDICARE ==
[~2022-09-17] MED LIST changes: +'CLONIDINE0.1 MG PO; +ATIVAN1 MG PO; +FUROSEMIDE20 M1 PO; +LASIX40 MG PO; +LOSARTAN POTASS25 M1 PO; +LOSARTAN POTASS50 M1 PO; +MEMANTINE HCL5 MG PO
[2022-09-17 12:36] LABS: HEMATOCRIT 44.9 % (42.0-52.0); MEAN CELL VOLUME 95.9 fl (80.0-94.0); MEAN CORPUSCULAR HGB CONC 35.4 g/dl (33.0-37.0); MEAN PLATELET VOLUME 9.2 fl (9.6-12.3); RED BLOOD COUNT 4.68 10*6/uL (4.50-5.90); RED CELL DISTRI WIDTH 12.8 % (0-14.5); WHITE BLOOD COUNT 5.6 10*3/uL (4.8-10.8)
[2022-09-17 12:43] LABS: BILIRUBIN Negative (Negative); BLOOD 2+ (Negative); CLARITY Clear (Clear); COLOR Dark Yellow (Yellow); GLUCOSE Negative (Negative); KETONE Trace (Negative); LEUKO ESTERASE Trace (Negative); NITRITE Negative (Negative); PH 5.5 (4.5-8.0); SPECIFIC GRAVITY 1.015 (1.001-1.030); UROBILINOGEN 0.2 E.U./dl (0.0-1.0)
[2022-09-17 12:53] LABS: ALKALINE PHOSPHATASE 52 U/L (45-117); BUN 20 mg/dl (7-24); CHLORIDE 108 mmol/L (98-107); CREATININE 1.28 mg/dL (0.70-1.30); POTASSIUM 4.4 mmol/L (3.5-5.1); SGPT/ALT 41 U/L (12-78); SODIUM 137 mmol/L (136-145)
[2022-09-17 13:21] LABS: BACTERIA TRACE; MUCOUS TRACE; RBC 21-30 rbc/hpf (0-2)
[2022-09-21 20:05] LABS: METHYLMALONIC ACID 158 nmol/L (0-378)
== END | disposition home or self-care (01) ==
LOC: LAB 11:55
PROVIDERS: ATTEND Psychiatry & Neurology Neurology
DX: G30.9 Alzheimer's disease, unspecified (principal); I10 Essential (primary) hypertension; Z79.899 Other long term (current) drug therapy

== ENCOUNTER → 2022-10-17 | Outpatient (CLI) | payer MEDICARE | END | disposition home or self-care (01) | LOC: MRI 10-09 11:00 | PROVIDERS: ATTEND Psychiatry & Neurology Neurology | DX: G30.9 Alzheimer's disease, unspecified (principal); I67.82 Cerebral ischemia; I67.89 Other cerebrovascular disease ==

== ENCOUNTER → 2022-11-03 | Outpatient (CLI) | payer MEDICARE | END | disposition home or self-care (01) | LOC: RAD 10:04 | PROVIDERS: ATTEND Orthopaedic Surgery | DX: M47.816 Spondylosis without myelopathy or radiculopathy, lumbar region (principal); M51.36 Other intervertebral disc degeneration, lumbar region; M48.061 Spinal stenosis, lumbar region without neurogenic claudication; M43.16 Spondylolisthesis, lumbar region; G89.29 Other chronic pain; M54.59 Other low back pain; I70.8 Atherosclerosis of other arteries; Z90.49 Acquired absence of other specified parts of digestive tract ==

== ENCOUNTER → 2022-11-19 | Outpatient (CLI) | payer MEDICARE | END | disposition home or self-care (01) | LOC: NM 11-14 10:00 | PROVIDERS: ATTEND Orthopaedic Surgery | DX: M25.562 Pain in left knee (principal); M25.561 Pain in right knee; Z96.652 Presence of left artificial knee joint; Z96.651 Presence of right artificial knee joint ==

== ENCOUNTER → 2022-12-01 | Outpatient (CLI) | payer MEDICARE ==
[2022-12-01 10:55] LABS: BASO % 0.7 % (0.0-1.0); EOS # 0.3 10*3/uL (0.0-0.4); EOS % 5.2 % (1.0-4.0); HEMATOCRIT 47.7 % (42.0-52.0); LYMPH # 1.6 10*3/uL (1.3-4.4); LYMPH % 27.2 % (27.0-41.0); MEAN CELL VOLUME 95.4 fl (80.0-94.0); MEAN CORPUSCULAR HGB 32.6 pg (27.0-31.0); MEAN CORPUSCULAR HGB CONC 34.2 g/dl (33.0-37.0); MEAN PLATELET VOLUME 9.5 fl (9.6-12.3); MONO # 0.5 10*3/uL (0.1-1.0); NEUT # 3.4 10*3/uL (2.3-7.9); NEUT % 57.7 % (47.0-73.0); PLATELET COUNT AUTOMATED 245 10*3/uL (130-400); RED CELL DISTRI WIDTH 13.3 % (0-14.5); WHITE BLOOD COUNT 5.9 10*3/uL (4.8-10.8)
[2022-12-01 10:56] LABS: BILIRUBIN Negative (Negative); BLOOD 2+ (Negative); CLARITY Clear (Clear); COLOR Dark Yellow (Yellow); GLUCOSE Negative (Negative); KETONE Negative (Negative); LEUKO ESTERASE Trace (Negative); NITRITE Negative (Negative); PH 6.5 (4.5-8.0); SPECIFIC GRAVITY 1.015 (1.001-1.030)
[2022-12-01 11:07] LABS: ACT PARTIAL THROMBO TIME 29.3 SECONDS (20.0-32.1)
[2022-12-01 11:11] LABS: BACTERIA TRACE; EPITHELIAL CELLS 0-2; RBC 31-40 rbc/hpf (0-2)
[2022-12-01 11:12] LABS: BUN 14 mg/dl (9-23); CHLORIDE 107 mmol/L (98-107); POTASSIUM 4.2 mmol/L (3.4-5.1)
== END | disposition home or self-care (01) ==
LOC: LAB 01:23
PROVIDERS: ATTEND Internal Medicine Cardiovascular Disease
DX: Z01.818 Encounter for other preprocedural examination (principal); R07.89 Other chest pain; Z98.890 Other specified postprocedural states

== ENCOUNTER → 2023-01-07 | Outpatient (CLI) | payer MEDICARE | END | disposition home or self-care (01) | LOC: RAD 00:25 | PROVIDERS: ATTEND Orthopaedic Surgery | DX: M43.16 Spondylolisthesis, lumbar region (principal); M48.061 Spinal stenosis, lumbar region without neurogenic claudication ==

== ENCOUNTER → 2023-02-05 | Outpatient (CLI) | payer MEDICARE | END | disposition home or self-care (01) | LOC: RAD 01:19 | PROVIDERS: ATTEND Orthopaedic Surgery | DX: M43.16 Spondylolisthesis, lumbar region (principal); M48.061 Spinal stenosis, lumbar region without neurogenic claudication; M41.80 Other forms of scoliosis, site unspecified ==

== ENCOUNTER → 2023-03-14 | Outpatient (CLI) | payer MEDICARE | END | disposition home or self-care (01) | LOC: RAD 00:16 | PROVIDERS: ATTEND Orthopaedic Surgery | DX: M47.816 Spondylosis without myelopathy or radiculopathy, lumbar region (principal) ==

== ENCOUNTER → 2023-06-08 | Outpatient (CLI) | payer MEDICARE | END | disposition home or self-care (01) | LOC: RAD 00:08 | PROVIDERS: ATTEND Orthopaedic Surgery | DX: M43.10 Spondylolisthesis, site unspecified (principal) ==

== ENCOUNTER → 2023-09-13 | Outpatient (CLI) | payer MEDICARE ==
[2023-09-13 08:49] LABS: BASO % 0.7 % (0.0-1.0); EOS # 0.4 10*3/uL (0.0-0.4); EOS % 7.5 % (1.0-4.0); HEMATOCRIT 52.9 % (42.0-52.0); LYMPH # 1.5 10*3/uL (1.3-4.4); LYMPH % 25.7 % (27.0-41.0); MEAN CELL VOLUME 96.7 fl (80.0-94.0); MEAN CORPUSCULAR HGB CONC 35.2 g/dl (33.0-37.0); MEAN PLATELET VOLUME 8.9 fl (9.6-12.3); MONO # 0.6 10*3/uL (0.1-1.0); MONO % 10.4 % (3.0-9.0); NEUT # 3.2 10*3/uL (2.3-7.9); NEUT % 55.5 % (47.0-73.0); PLATELET COUNT AUTOMATED 228 10*3/uL (130-400); RED BLOOD COUNT 5.47 10*6/uL (4.50-5.90); RED CELL DISTRI WIDTH 12.8 % (0-14.5); WHITE BLOOD COUNT 5.8 10*3/uL (4.8-10.8)
[2023-09-13 09:35] LABS: ALKALINE PHOSPHATASE 67 U/L (46-116); BUN 12 mg/dl (9-23); CHLORIDE 109 mmol/L (98-107); CHOLESTEROL 176 mg/dL (<200); FREE T4 0.94 ng/dl (0.89-1.76); LDL CHOLESTEROL 85 mg/dL (9-159); POTASSIUM 4.6 mmol/L (3.4-5.1); SGPT/ALT 42 U/L (5-49); TOTAL PROTEIN 6.5 gm/dL (6.0-8.0); TRIGLYCERIDES 177 mg/dl (<150)
== END | disposition home or self-care (01) ==
LOC: LAB 00:17
PROVIDERS: ATTEND Internal Medicine
DX: Z12.5 Encounter for screening for malignant neoplasm of prostate (principal); Z13.0 Encounter for screening for diseases of the blood and blood-forming organs and certain disorders involving the immune mechanism; Z13.1 Encounter for screening for diabetes mellitus; Z13.21 Encounter for screening for nutritional disorder; Z13.220 Encounter for screening for lipoid disorders; Z13.228 Encounter for screening for other metabolic disorders; Z13.29 Encounter for screening for other suspected endocrine disorder; Z13.6 Encounter for screening for cardiovascular disorders; Z13.89 Encounter for screening for other disorder; Z13.9 Encounter for screening, unspecified; F41.1 Generalized anxiety disorder; E78.2 Mixed hyperlipidemia; E55.9 Vitamin D deficiency, unspecified

== ENCOUNTER → 2023-10-22 | Outpatient (CLI) | payer MEDICARE | END | disposition home or self-care (01) | LOC: LAB 00:34 | PROVIDERS: ATTEND Internal Medicine | DX: Z13.0 Encounter for screening for diseases of the blood and blood-forming organs and certain disorders involving the immune mechanism (principal); R79.89 Other specified abnormal findings of blood chemistry ==

== ENCOUNTER → 2023-10-29 | Outpatient (CLI) | payer MEDICARE | END | disposition home or self-care (01) | LOC: US 10-11 13:00 | PROVIDERS: ATTEND Urology | DX: N20.0 Calculus of kidney (principal); N40.0 Benign prostatic hyperplasia without lower urinary tract symptoms ==

== ENCOUNTER → 2023-11-19 | Outpatient (CLI) | payer MEDICARE ==
[2023-11-19 14:56] LABS: BASO % 0.7 % (0.0-1.0); EOS # 0.5 10*3/uL (0.0-0.4); EOS % 7.8 % (1.0-4.0); HEMATOCRIT 48.3 % (42.0-52.0); LYMPH % 32.2 % (27.0-41.0); MEAN CELL VOLUME 96.4 fl (80.0-94.0); MEAN CORPUSCULAR HGB 32.5 pg (27.0-31.0); MEAN CORPUSCULAR HGB CONC 33.7 g/dl (33.0-37.0); MEAN PLATELET VOLUME 8.7 fl (9.6-12.3); MONO # 0.6 10*3/uL (0.1-1.0); MONO % 10.2 % (3.0-9.0); NEUT % 48.9 % (47.0-73.0); PLATELET COUNT AUTOMATED 242 10*3/uL (130-400); RED BLOOD COUNT 5.01 10*6/uL (4.50-5.90); RED CELL DISTRI WIDTH 12.7 % (0-14.5); WHITE BLOOD COUNT 6.1 10*3/uL (4.8-10.8)
[2023-11-19 14:59] LABS: BILIRUBIN Negative (Negative); BLOOD Negative (Negative); CLARITY Clear (Clear); COLOR Yellow (Yellow); GLUCOSE Negative (Negative); KETONE Negative (Negative); LEUKO ESTERASE Negative (Negative); NITRITE Negative (Negative); UROBILINOGEN 0.2 E.U./dl (0.0-1.0)
[2023-11-19 15:09] LABS: BACTERIA 2+; RBC 0-2 rbc/hpf (0-2)
[2023-11-19 15:17] LABS: ALKALINE PHOSPHATASE 53 U/L (46-116); BUN 15 mg/dl (9-23); CHLORIDE 109 mmol/L (98-107); POTASSIUM 4.2 mmol/L (3.4-5.1); SGPT/ALT 38 U/L (5-49); TOTAL PROTEIN 6.6 gm/dL (6.0-8.0)
== END | disposition home or self-care (01) ==
LOC: LAB 01:19 → CT 15:00 → LAB 15:00
PROVIDERS: ATTEND Urology
DX: Z12.5 Encounter for screening for malignant neoplasm of prostate (principal); N20.0 Calculus of kidney; N32.89 Other specified disorders of bladder; N28.1 Cyst of kidney, acquired; K57.90 Diverticulosis of intestine, part unspecified, without perforation or abscess without bleeding; N40.0 Benign prostatic hyperplasia without lower urinary tract symptoms; D40.0 Neoplasm of uncertain behavior of prostate; R53.83 Other fatigue; I25.10 Atherosclerotic heart disease of native coronary artery without angina pectoris; Z90.49 Acquired absence of other specified parts of digestive tract

== ENCOUNTER → 2023-12-06 | Outpatient (CLI) | payer MEDICARE | END | disposition home or self-care (01) | LOC: RAD 01:21 | PROVIDERS: ATTEND Orthopaedic Surgery | DX: M51.87 Other intervertebral disc disorders, lumbosacral region (principal); M43.26 Fusion of spine, lumbar region; M48.07 Spinal stenosis, lumbosacral region ==

== ENCOUNTER → 2024-01-14 | Outpatient (CLI) | payer MEDICARE ==
[2024-01-14 10:44] LABS: VITAMIN D, 25-HYDROXY 26.6 ng/mL (30-100)
== END | disposition home or self-care (01) ==
LOC: LAB 01:03
PROVIDERS: ATTEND Internal Medicine
DX: E83.52 Hypercalcemia (principal)

== ENCOUNTER → 2024-01-22 | Outpatient (CLI) | payer MEDICARE | END | disposition home or self-care (01) | LOC: US 01-16 01:53 | PROVIDERS: ATTEND Urology | DX: N50.3 Cyst of epididymis (principal); N43.3 Hydrocele, unspecified; I86.1 Scrotal varices; N50.819 Testicular pain, unspecified; R60.9 Edema, unspecified ==

== ENCOUNTER → 2024-02-05 | Outpatient (CLI) | payer MEDICARE ==
[~2024-02-05] MED LIST changes: +IOHEXOL 350 MG/ML 100 ML VIAL IV ONE
[2024-02-05 14:43] LABS: BILIRUBIN Negative (Negative); BLOOD Trace-Lysed (Negative); CLARITY Clear (Clear); COLOR Orange (Yellow); GLUCOSE Negative (Negative)
[2024-02-05 14:44] LABS: KETONE Negative (Negative); LEUKO ESTERASE 2+ (Negative); NITRITE Positive (Negative); PH 6.5 (4.5-8.0); SPECIFIC GRAVITY 1.015 (1.001-1.030)
[2024-02-05 14:59] LABS: RBC TNTC rbc/hpf (0-2); WBC TNTC wbc/hpf (0-5)
[2024-02-05 15:00] LABS: BACTERIA 1+
== END | disposition home or self-care (01) ==
LOC: CT 00:12
PROVIDERS: ATTEND Urology
DX: N30.21 Other chronic cystitis with hematuria (principal); I25.10 Atherosclerotic heart disease of native coronary artery without angina pectoris; N20.0 Calculus of kidney; N40.0 Benign prostatic hyperplasia without lower urinary tract symptoms; N28.1 Cyst of kidney, acquired

== ENCOUNTER → 2024-04-15 | Outpatient (CLI) | payer MEDICARE ==
[~2024-04-15] MED LIST changes: -IOHEXOL 350 MG/ML 100 ML VIAL IV ONE
[2024-04-15 08:36] LABS: BASO % 0.8 % (0.0-1.0); EOS # 0.4 10*3/uL (0.0-0.4); EOS % 8.3 % (1.0-4.0); HEMATOCRIT 50.2 % (42.0-52.0); LYMPH # 1.6 10*3/uL (1.3-4.4); LYMPH % 29.4 % (27.0-41.0); MEAN CELL VOLUME 98.6 fl (80.0-94.0); MEAN CORPUSCULAR HGB 33.2 pg (27.0-31.0); MEAN CORPUSCULAR HGB CONC 33.7 g/dl (33.0-37.0); MEAN PLATELET VOLUME 8.5 fl (9.6-12.3); MONO # 0.5 10*3/uL (0.1-1.0); MONO % 10.2 % (3.0-9.0); NEUT # 2.7 10*3/uL (2.3-7.9); NEUT % 51.1 % (47.0-73.0); PLATELET COUNT AUTOMATED 243 10*3/uL (130-400); RED BLOOD COUNT 5.09 10*6/uL (4.50-5.90); RED CELL DISTRI WIDTH 13.6 % (0-14.5); WHITE BLOOD COUNT 5.3 10*3/uL (4.8-10.8)
[2024-04-15 09:29] LABS: VITAMIN D, 25-HYDROXY 29.4 ng/mL (30-100)
[2024-04-15 09:30] LABS: ALKALINE PHOSPHATASE 49 U/L (46-116); BUN 14 mg/dl (9-23); CHLORIDE 109 mmol/L (98-107); CHOLESTEROL 172 mg/dL (<200); FREE T4 0.97 ng/dl (0.89-1.76); LDL CHOLESTEROL 87 mg/dL (9-159); POTASSIUM 4.1 mmol/L (3.4-5.1); SGPT/ALT 24 U/L (5-49); TOTAL PROTEIN 6.5 gm/dL (6.0-8.0); TRIGLYCERIDES 122 mg/dl (<150)
== END | disposition home or self-care (01) ==
LOC: LAB 01:36
PROVIDERS: ATTEND Internal Medicine
DX: Z13.1 Encounter for screening for diabetes mellitus (principal); I10 Essential (primary) hypertension; J44.9 Chronic obstructive pulmonary disease, unspecified; E11.9 Type 2 diabetes mellitus without complications; Z13.0 Encounter for screening for diseases of the blood and blood-forming organs and certain disorders involving the immune mechanism; Z13.21 Encounter for screening for nutritional disorder; Z13.220 Encounter for screening for lipoid disorders; Z13.228 Encounter for screening for other metabolic disorders; Z13.29 Encounter for screening for other suspected endocrine disorder; Z13.6 Encounter for screening for cardiovascular disorders; Z13.89 Encounter for screening for other disorder; Z13.9 Encounter for screening, unspecified

== ENCOUNTER → 2024-11-06 | Outpatient (CLI) | payer MEDICARE ==
[~2024-11-06] MED LIST changes: +LASIX20 MG PO
== END | disposition home or self-care (01) ==
LOC: US 12:26
PROVIDERS: ATTEND Internal Medicine
DX: M25.571 Pain in right ankle and joints of right foot (principal); M79.89 Other specified soft tissue disorders

== ENCOUNTER 2024-11-08 13:42 | Emergency (ER) | payer MEDICARE ==
[~2024-11-08] VITALS: Ht 172.7 cm; Wt 77.1 kg
[~2024-11-08 13:42] MED LIST changes: -LASIX20 MG PO
[2024-11-08 13:58] VITALS: BP 146/67
[2024-11-08 14:35] LABS: BASO # 0.1 10*3/uL (0.0-0.1); BASO % 0.7 % (0.0-1.0); EOS # 0.5 10*3/uL (0.0-0.4); EOS % 6.6 % (1.0-4.0); HEMATOCRIT 42.5 % (42.0-52.0); MEAN CELL VOLUME 94.2 fl (80.0-94.0); MEAN CORPUSCULAR HGB 32.6 pg (27.0-31.0); MEAN CORPUSCULAR HGB CONC 34.6 g/dl (33.0-37.0); MEAN PLATELET VOLUME 8.9 fl (9.6-12.3); MONO # 0.8 10*3/uL (0.1-1.0); MONO % 12.1 % (3.0-9.0); NEUT % 58.8 % (47.0-73.0); PLATELET COUNT AUTOMATED 259 10*3/uL (130-400); RED BLOOD COUNT 4.51 10*6/uL (4.50-5.90); RED CELL DISTRI WIDTH 13.4 % (0-14.5); WHITE BLOOD COUNT 6.8 10*3/uL (4.8-10.8)
[2024-11-08 15:00] LABS: BUN 16 mg/dl (9-23); CHLORIDE 109 mmol/L (98-107)
[2024-11-08] MEDS ORDERED: LASIX20 MG PO (15:12)
== END 2024-11-08 15:39 | disposition home or self-care (01) ==
LOC: ED 13:42
PROVIDERS: Emergency Medicine
DX: M79.89 Other specified soft tissue disorders (principal); I10 Essential (primary) hypertension; E78.5 Hyperlipidemia, unspecified; I25.10 Atherosclerotic heart disease of native coronary artery without angina pectoris; F41.9 Anxiety disorder, unspecified; K21.9 Gastro-esophageal reflux disease without esophagitis; Z91.030 Bee allergy status; Z88.8 Allergy status to other drugs, medicaments and biological substances; Z90.49 Acquired absence of other specified parts of digestive tract; Z98.890 Other specified postprocedural states; Z87.891 Personal history of nicotine dependence

== ENCOUNTER → 2024-11-20 | Outpatient (CLI) | payer MEDICARE ==
[~2024-11-20] MED LIST changes: +LASIX20 MG PO
[2024-11-20 09:30] LABS: BASO % 0.5 % (0.0-1.0); EOS # 0.4 10*3/uL (0.0-0.4); EOS % 7.4 % (1.0-4.0); MEAN CELL VOLUME 97.1 fl (80.0-94.0); MEAN CORPUSCULAR HGB 33.3 pg (27.0-31.0); MEAN CORPUSCULAR HGB CONC 34.3 g/dl (33.0-37.0); MEAN PLATELET VOLUME 9.1 fl (9.6-12.3); MONO # 0.7 10*3/uL (0.1-1.0); MONO % 12.7 % (3.0-9.0); NEUT # 3.1 10*3/uL (2.3-7.9); NEUT % 55.9 % (47.0-73.0); PLATELET COUNT AUTOMATED 250 10*3/uL (130-400); RED BLOOD COUNT 4.53 10*6/uL (4.50-5.90); WHITE BLOOD COUNT 5.6 10*3/uL (4.8-10.8)
[2024-11-20 09:56] LABS: ALKALINE PHOSPHATASE 56 U/L (46-116); BUN 16 mg/dl (9-23); CHLORIDE 106 mmol/L (98-107); SGPT/ALT 27 U/L (5-49); TOTAL PROTEIN 6.2 gm/dL (6.0-8.0)
== END | disposition home or self-care (01) ==
LOC: LAB 01:29
PROVIDERS: ATTEND Urology
DX: Z12.5 Encounter for screening for malignant neoplasm of prostate (principal); D40.0 Neoplasm of uncertain behavior of prostate; R53.83 Other fatigue

== ENCOUNTER → 2025-01-04 | Outpatient (CLI) | payer MEDICARE | END | disposition home or self-care (01) | LOC: US 12-31 09:00 | PROVIDERS: ATTEND Urology | DX: N28.1 Cyst of kidney, acquired (principal) ==

== ENCOUNTER 2025-01-15 15:52 | Emergency (ER) | payer MEDICARE ==
[2025-01-15] MEDS ORDERED: Acetaminophen/Hydrocodone HP 10/325 PO ONE (16:10)
[2025-01-15] MEDS ORDERED: Tdap Vaccine 0.5 ML SYR (Adult Vaccine) IM ONE (17:45)
[2025-01-15] MEDS ORDERED: Acetaminophen/Hydrocodone 5 MG/325 MG TABLET PO ONE (17:45)
[2025-01-15] MEDS ORDERED: Acetaminophen/Hydrocodone Bi 3 TAB PACK PO ONE (19:00)
[2025-01-15] MEDS ORDERED: HYDROCODONE-AC1 EAC1 PO (19:02)
== END 2025-01-15 19:01 | disposition home or self-care (01) ==
LOC: ED 15:52
DX: S62.112A Displaced fracture of triquetrum [cuneiform] bone, left wrist, initial encounter for closed fracture (principal); S62.391A Other fracture of second metacarpal bone, left hand, initial encounter for closed fracture; S62.393A Other fracture of third metacarpal bone, left hand, initial encounter for closed fracture; W20.8XXA Other cause of strike by thrown, projected or falling object, initial encounter; Y93.89 Activity, other specified; Y92.89 Other specified places as the place of occurrence of the external cause; Y99.8 Other external cause status

== ENCOUNTER → 2025-01-25 | Outpatient (CLI) | payer MEDICARE ==
[~2025-01-25] MED LIST changes: +HYDROCODONE-AC1 EAC1 PO
== END | disposition home or self-care (01) ==
LOC: ORTHO 03:38
PROVIDERS: ATTEND Orthopaedic Surgery
DX: S62.341D Nondisplaced fracture of base of second metacarpal bone, left hand, subsequent encounter for fracture with routine healing (principal); M19.022 Primary osteoarthritis, left elbow; M25.422 Effusion, left elbow; M79.89 Other specified soft tissue disorders; M25.722 Osteophyte, left elbow; X58.XXXD Exposure to other specified factors, subsequent encounter

== ENCOUNTER → 2025-02-08 | Outpatient (CLI) | payer MEDICARE | END | disposition home or self-care (01) | LOC: ORTHO 02:23 | PROVIDERS: ATTEND Orthopaedic Surgery | DX: S62.351D Nondisplaced fracture of shaft of second metacarpal bone, left hand, subsequent encounter for fracture with routine healing (principal); S62.341D Nondisplaced fracture of base of second metacarpal bone, left hand, subsequent encounter for fracture with routine healing; X58.XXXD Exposure to other specified factors, subsequent encounter ==

== ENCOUNTER → 2025-08-26 | Outpatient (CLI) | payer MEDICARE ==
[~2025-08-26] MED LIST changes: +AMLODIPINE BESYL5 MG PO; +ATORVASTATIN CA40 M1 PO; +FENOFIBRATE145 M1 PO; +FLOMAX0.4 MG PO; +MEMANTINE HCL10 MG PO; +PLAVIX75 M1 PO; +TOPROL XL100 MG PO
[2025-08-26 10:58] LABS: BASO # 0.0 10*3/uL (0.0-0.1); BASO % 0.5 % (0.0-1.0); EOS # 0.5 10*3/uL (0.0-0.4); EOS % 7.1 % (1.0-4.0); MEAN CELL VOLUME 96.9 fl (80.0-94.0); MEAN CORPUSCULAR HGB 32.7 pg (27.0-31.0); MEAN PLATELET VOLUME 8.5 fl (9.6-12.3); MONO # 0.6 10*3/uL (0.1-1.0); MONO % 9.4 % (3.0-9.0); NEUT # 4.0 10*3/uL (2.3-7.9); NEUT % 63.2 % (47.0-73.0); NUCLEATED RED BLOOD CELL 0.0 % (0.0-0.0); NUCLEATED RED BLOOD CELL 0.0 10*3/uL (0.0-0.0); PLATELET COUNT AUTOMATED 226 10*3/uL (130-400); RED CELL DISTRI WIDTH 12.5 % (0-14.5)
[2025-08-26 11:24] LABS: BUN 16 mg/dl (9-23); SGPT/ALT 28 U/L (5-49)
== END | disposition home or self-care (01) ==
LOC: LAB 01:40 → US 09:30 → LAB 09:30
PROVIDERS: Nurse Practitioner; ATTEND Urology
DX: N50.3 Cyst of epididymis (principal); N28.1 Cyst of kidney, acquired; N50.819 Testicular pain, unspecified; R53.83 Other fatigue; D40.0 Neoplasm of uncertain behavior of prostate; N32.89 Other specified disorders of bladder; Z12.5 Encounter for screening for malignant neoplasm of prostate